=== PATIENT | female | born 1980 | race Caucasian/White ===

== ENCOUNTER 2019-11-23 06:37 | Outpatient (CLI) | payer OTHER, BC, SELFPAY ==
--- NOTE | ~2019-11-23 | MR_ITS ---
EXAMINATION: MR cervical spine wo con EXAM DATE: 11/23/2019 07:40 INDICATION: Right arm numbness/pain. Neck pain. Paresthesia. TECHNIQUE: Multi-sequential, multiplanar MR images of the cervical spine were obtained without contra st. Axial T2, axial T2 MERGE sequence. Sagittal T1, T2, T2 fat saturation images also obtained. Th ere is no prior study for comparison. FINDINGS: There is moderate disc disease at C5-6 and 6-7. The vertebral body and disc heights are ot herwise well maintained. The vertebral bodies are aligned in the AP dimension. The spinal cord signal intensity and intrinsic morphology is normal. Cervicomedullary junction is normal in appearance. The re are no suspicious marrow signal abnormalities. Paraspinal soft tissue is unremarkable. Level by level evaluation: C2-C3: Disc does not extend beyond the endplate margin. Uncovertebral joint arthropathy: Mild left. Facet joint arthropathy: Mild bilateral. Neural foraminal stenosis: No stenosis. Central canal stenosis: No stenosis. C3-C4: Disc does not extend beyond the endplate margin. Uncovertebral joint arthropathy: Mild bilateral. Facet joint arthropathy: Mild bilateral. Neural foraminal stenosis: Mild right. Central canal stenosis: No stenosis. C4-C5: Disc does not extend beyond the endplate margin. Uncovertebral joint arthropathy: Mild bilateral. Facet joint arthropathy: Mild bilateral. Neural foraminal stenosis: Mild to moderate left. Central canal stenosis: No stenosis. C5-C6: There is a mild diffuse disc bulge extending into the right neural foramina. Uncovertebral joint arthropathy: Mild to moderate bilateral. Facet joint arthropathy: Mild bilateral. Neural foraminal stenosis: Moderate right, mild to moderate left. Central canal stenosis: Mild. C6-C7: There is a mild diffuse disc bulge. Uncovertebral joint arthropathy: Mild to moderate bilateral left greater than right. Facet joint arthropathy: Mild bilateral. Neural foraminal stenosis: Moderate left, mild to moderate right. Central canal stenosis: Mild. C7-T1: Disc does not extend beyond the endplate margin. Uncovertebral joint arthropathy: Mild bilateral. Facet joint arthropathy: Minimal. Neural foraminal stenosis: No stenosis. Central canal stenosis: No stenosis. IMPRESSION: Spondylosis mostly at C5-6 and 6-7 with the right C5-6 neural foramina most narrowed on e xam. Reviewed, dictated and finalized at location A. NESS PROCESS ASSOCIATE IMPRESSION: Spondylosis mostly at C5-6 and 6-7 with the right C5-6 neural amaury ap most narrowed on exam.
== END 2019-11-23 06:38 | disposition home or self-care (01) ==
PROVIDERS: PCP Nurse Practitioner Family; Visit Provider Nurse Practitioner Family
DX: R20.2 Paresthesia of skin (principal); M47.892 Other spondylosis, cervical region
CPT/HCPCS: 72141

== ENCOUNTER 2021-12-06 10:37 | Outpatient (CLI) | payer BC, SELFPAY ==
--- NOTE | ~2021-12-06 | MM_ITS ---
EXAMINATION: MM screening [facility] BI w arelis HISTORY: Screening mammogram TECHNIQUE: Craniocaudal and mediolateral oblique 3-D tomosynthesis images were obtained and synthetic 2-D images were generated. CAD analysis was submitted and interpreted. COMPARISON: 05/30/2019, 05/27/2018 bilateral screening mammogram examinations BREAST PARENCHYMAL COMPOSITION: The breasts are heterogeneously dense, which may obscure small masses . FINDINGS: There is interval asymmetric increased density in the posterior upper inner right breast si nce 05/30/2019. Diagnostic right mammogram is recommended, with ultrasound if required. Otherwise there is no evidence of suspicious mass, calcification, or architectural distortion to sugg est malignancy in either breast. There has been no suspicious interval change. IMPRESSION: 1. Interval asymmetric increased density in posterior upper inner right breast 2. Diagnostic right mammogram and right breast ultrasound examination are recommended BI-RADS Category 1: Negative Reviewed, dictated and finalized at location A. GED CARE COORDINATOR IMPRESSION: 1. Interval asymmetric increased density in posterior upper inner right breast 2. Diagnostic right mammogram and right breast ultrasound examination are recom mended BI-RADS Category 1: Negative
== END 2021-12-06 10:38 | disposition home or self-care (01) ==
LOC: ANHIMG 10:41
PROVIDERS: PCP Nurse Practitioner Family; Visit Provider Obstetrics & Gynecology
DX: Z12.31 Encounter for screening mammogram for malignant neoplasm of breast (principal); R92.8 Other abnormal and inconclusive findings on diagnostic imaging of breast
CPT/HCPCS: 77063; 77067

== ENCOUNTER 2021-12-19 13:28 | Outpatient (CLI) | payer BC, SELFPAY ==
--- NOTE | ~2021-12-19 | MMUS_ITS ---
EXAMINATION: MM diagnostic mammo unilat RT, US breast RT limited HISTORY: Right breast asymmetry on screening mammogram TECHNIQUE: Additional 3-D tomosynthesis images of the right breast were performed and synthetic 2-D i mages were generated. CAD analysis was submitted and interpreted. High resolution limited right breas t ultrasound was performed. COMPARISON: 12/06/2021, 05/30/2019, 05/27/2018 FINDINGS: MAMMOGRAPHIC FINDINGS: There is a persistent asymmetry in the posterior third of the slightly upper breast on the craniocaud al view. No suspicious calcification or architectural distortion are identified. ULTRASOUND: There is a 4 mm cyst at the 11:00 location 2 cm from the nipple. No sonographic correlate is identifi ed for the right breast asymmetry. IMPRESSION: 1. Probably benign right breast asymmetry. 2. Recommend 6 month follow-up right diagnostic mammogram and possible ultrasound. BI-RADS category 3, probably benign findings. Reviewed, dictated and finalized at location A. RITY AND COMPLIANCE PROJECT MANAGER IMPRESSION: 1. Probably benign right breast asymmetry. 2. Recommend 6 month follow-up right diagnostic mammogram and possible ultrasou nd. BI-RADS category 3, probably benign findings.
== END 2021-12-19 13:29 | disposition home or self-care (01) ==
LOC: ANHIMG 13:30
PROVIDERS: PCP Nurse Practitioner Family; Visit Provider Obstetrics & Gynecology
DX: R92.8 Other abnormal and inconclusive findings on diagnostic imaging of breast (principal)
CPT/HCPCS: 76642; 77061; 77065; G0279

== ENCOUNTER 2022-07-17 12:46 | Outpatient (CLI) | payer BC, SELFPAY ==
--- NOTE | ~2022-07-17 | MMUS_ITS ---
EXAMINATION: MM diagnostic [place] RT w arelis, US breast RT complete HISTORY: Probably benign right breast mammographic asymmetry reported on 12/2021 diagnostic right [place] mogram and limited right breast ultrasound TECHNIQUE: Full field and spot ML, MLO and CC 3-D tomosynthesis images of the right breast were perfo rmed and synthetic 2-D images were generated. CAD analysis was submitted and interpreted. High resolu tion complete right breast ultrasound including all 4 quadrants and subareolar area was performed. COMPARISON: bilateral screening mammogram 3. diagnostic right mammogram and limited right breast ultrasound BREAST PARENCHYMAL COMPOSITION: There are scattered areas of fibroglandular density. FINDINGS: MAMMOGRAPHIC FINDINGS: Mammographic asymmetry is again noted when comparing right breast to left breast screening mammogram images. No suspicious mass or architectural distortion is noted. ULTRASOUND: 9:00 4 cm from nipple: 2 x 4 mm cyst 11:00 2 cm from nipple: 2.3 x 4.8 mm parallel circumscribed hypoechoic lesion without internal vascul arity or posterior shadowing, likely benign IMPRESSION: 1. No mammographic evidence of malignancy 2. Routine annual mammographic screening is recommended. BI-RADS Category 2: Benign finding(s). Reviewed, dictated and finalized at location A. IMPRESSION: 1. No mammographic evidence of malignancy 2. Routine annual mammographic screening is recommended. BI-RADS Category 2: Benign finding(s).
== END 2022-07-17 12:47 | disposition home or self-care (01) ==
LOC: ANHIMG 12:49
PROVIDERS: PCP Nurse Practitioner Family; Visit Provider Obstetrics & Gynecology
DX: R92.8 Other abnormal and inconclusive findings on diagnostic imaging of breast (principal)
CPT/HCPCS: 76641; 77061; 77065; G0279

== ENCOUNTER 2023-05-05 15:31 | Outpatient (CLI) | payer BC, SELFPAY ==
--- NOTE | ~2023-05-05 | MR_ITS ---
EXAMINATION: MR shoulder RT wo con DATE: 05/05/2023 16:15 INDICATION: PARTIAL THICKNESS ROTATOR CUFF TEAR . TECHNIQUE: Magnetic resonance imaging (MRI) of the right shoulder was performed without intravenous c ontrast. Sequences included axial PD-weighted FS FSE, coronal oblique PD-weighted FS FSE and T2-weigh matilde FS FSE, and sagittal oblique T2-weighted FS FSE and T1-weighted FSE. COMPARISON: None. FINDINGS: Coracoacromial arch: Mild lateral downsloping of the type II acromion. Mild inferior osteophytosis of the AC joint. Mild a cromial tip enthesopathy. No significant subacromial or subcoracoid narrowing. Rotator cuff: Soft tissue anchors from prior rotator cuff repair. 3 mm full-thickness defect in the distal aspect o f the infraspinous tendon, at its insertion. Focal articular sided defect, likely small perforation, in the supraspinatous tendon at the critical zone. Generalized diffuse abnormal signal in the mid and distal superior cuff tendons. Mild volume loss of the infraspinous muscle. 4 mm low signal area in t he superior cuff with surrounding edema may represent a component of calcific tendinitis. Biceps tendon and glenoid labrum: The long and short heads of the biceps are intact Fluid: Small volume subacromial fluid. Small volume glenohumeral joint fluid. Bones/cartilage: Moderate AC joint hypertrophy. Mild degenerative change at the glenohumeral joint and glenoid labrum. IMPRESSION: 3 mm full-thickness infraspinatus tear at its insertion. Focal articular sided perforation of the sup raspinous tendon at the critical zone. Changes of prior rotator cuff repair. Abnormal signal in the distal superior cuff likely relates to t endinopathy and/or postsurgical change. Mild infraspinatus atrophy. Mild subacromial bursitis. Mild outlet compromise. Moderate AC joint and mild glenohumeral osteoarthritis. Reviewed, dictated and finalized at location K. IMPRESSION: 3 mm full-thickness infraspinatus tear at its insertion. Focal articular sided perforation of the supraspinous tendon at the critical zone. Changes of prior rotator cuff repair. Abnormal signal in the distal superior cu ff likely relates to tendinopathy and/or postsurgical change. Mild infraspinatu s atrophy. Mild subacromial bursitis. Mild outlet compromise. Moderate AC joint and mild glenohumeral osteoarthritis.
== END 2023-05-05 15:32 | disposition home or self-care (01) ==
PROVIDERS: PCP Nurse Practitioner Family; Visit Provider Orthopaedic Surgery Hand Surgery
DX: M75.101 Unspecified rotator cuff tear or rupture of right shoulder, not specified as traumatic (principal); M19.011 Primary osteoarthritis, right shoulder; M75.51 Bursitis of right shoulder
CPT/HCPCS: 73221

== ENCOUNTER 2024-03-08 13:14 | Outpatient (CLI) | payer BC, SELFPAY ==
--- NOTE | ~2024-03-08 | MM_ITS ---
EXAMINATION: MM screening [facility] BI w arelis HISTORY: Screening TECHNIQUE: Craniocaudal and mediolateral oblique 3-D tomosynthesis images were obtained and synthetic 2-D images were generated. CAD analysis was submitted and interpreted. COMPARISON: Comparison to multiple prior studies sequentially, with oldest reviewed study dated 05/30. BREAST PARENCHYMAL COMPOSITION: Dense: The breasts are heterogeneously dense, which may obscure small masses FINDINGS: There is no evidence of suspicious mass, calcification, or architectural distortion to sugg est malignancy in either breast. There has been no suspicious interval change. IMPRESSION: 1. No mammographic evidence of malignancy. 2. Recommend routine screening mammography in one year. BI-RADS Category 1: Negative Reviewed, dictated and finalized at location A.
== END 2024-03-08 13:15 | disposition home or self-care (01) ==
LOC: ANHIMG 13:15
PROVIDERS: PCP Family Medicine; Visit Provider Obstetrics & Gynecology
DX: Z12.31 Encounter for screening mammogram for malignant neoplasm of breast (principal)
CPT/HCPCS: 77063; 77067

== ENCOUNTER 2024-08-09 16:48 | Inpatient (IN) | payer BC, SELFPAY ==
[2024-08-09] VITALS (14 sets, daily range): BP systolic 117–132; BP diastolic 60–88; PULSE 51–81; RESP 13–23; TEMP 36–36.6; O2SAT 97–100; BMI 24.0
--- NOTE | ~2024-08-09 | MR_ITS ---
EXAMINATION: MR MRCP wo/w con/w 3D wo ind DATE: 08/10/2024 13:11 INDICATION: Right upper quadrant abdominal pain. TECHNIQUE: Magnetic resonance imaging (MRI) of the abdomen was performed without and with 14 mL Multi [place] intravenous contrast. Sequences included coronal T2-weighted FS FSE, coronal T2-weighted FSE, a xial T1-weighted LAVA, coronal FS FIESTA, axial dual-echo T1-weighted SPGR, coronal lava-FLEX, sagitt al T2-weighted FSE, axial T2-weighted FSE, and axial DWI. Thick-slab T2-weighted FSE images were obta ined for magnetic resonance cholangiopancreatography (MRCP). Maximum intensity projection 3-D reconst ructions of the volumetric data were created by the technologist. Postcontrast sequences included cor onal LAVA-flex and time course of axial T1-weighted LAVA. COMPARISON: CT abdomen and pelvis 08/09/2024, ultrasound 08/09/2024 FINDINGS: ABDOMEN MRI: The liver is normal. The gallbladder is distended and contains gallstones. The spleen, p ancreas, adrenal glands, and left kidney are normal. There is a 9 mm cyst in right kidney. There are no dilated loops of bowel. ABDOMEN MRCP: The common duct is mildly dilated to 8 mm. No choledocholithiasis. IMPRESSION: 1. Mildly dilated common duct. No choledocholithiasis. 2. Cholelithiasis. Gallbladder distention may be secondary to fasting. Reviewed, dictated and finalized at location A.
--- NOTE | ~2024-08-09 | XR_ITS ---
INTRAOPERATIVE FLUOROSCOPY: CLINICAL HISTORY: 44 years old Female; GRACIA W/ IOC'S PROCEDURE COMMENTS: Limited intraoperative fluoroscopy of the right upper quadrant was performed. CUMULATIVE DOSE: 1.5 mGy FLUOROSCOPY TIME: 11.9 seconds FINDINGS/IMPRESSION: Please refer to operative note for further details. Reviewed, dictated and finalized at location A.
--- NOTE | ~2024-08-09 | XR_ITS ---
EXAMINATION: XR chest 2V DATE: 08/09/2024 17:07 INDICATION: Chest and back pain. Nausea. TECHNIQUE: PA and lateral views of the chest were obtained. COMPARISON: None FINDINGS: The lungs are clear with no focal airspace opacities, pulmonary edema, pleural effusion or pneumothor ax. The cardiomediastinal silhouette is normal. Mild to moderate thoracic spondylosis with chronic ap pearing mild anterior wedging of T7 and minimal anterior wedging at T11-T12. Prosthetic discs particu lar couple levels in the lower cervical spine. IMPRESSION: 1. No acute cardiopulmonary disease. Reviewed, dictated and finalized at location A.
--- NOTE | ~2024-08-09 | US_ITS ---
EXAMINATION: US abdomen limited DATE: 08/09/2024 19:41 INDICATION: Epigastric pain TECHNIQUE: Multiple grayscale and Doppler ultrasound images of the abdomen were obtained. COMPARISON: None FINDINGS: Portions of the pancreatic head and secured. The remainder the pancreas is normal in appearance. Live r has normal echogenicity and contour, with a smooth surface. No liver lesion identified. Minimal andriy tral intrahepatic biliary duct dilation suspected. Portal venous flow was seen in the hepatopetal, no rmal direction and has normal Doppler waveform. Multiple echogenic and shadowing gallstones within th e normal appearing gallbladder. There is a small amount of pericholecystic fluid at the gallbladder f shlomo. The common bile duct is dilated measuring 9 mm in maximal diameter. Sonographic Angelo sign was reported as positive by the dental technician apprentice.The visualized proximal to mid aorta and inferior vena cava are normal. IMPRESSION: 1. Cholelithiasis with positive sonographic Angelo sign and small amount of pericholecystic fluid con sistent with likely early acute cholecystitis. 2. Mild intra and extrahepatic biliary ductal dilation with common bile duct measuring up to 9 mm whi ch suggests a possible distal obstructing stone. Correlate with liver function tests and consider MRC P for further evaluation. Reviewed, dictated and finalized at location A. IMPRESSION: 1. Cholelithiasis with positive sonographic Angelo sign and small amount of per icholecystic fluid consistent with likely early acute cholecystitis. 2. Mild intra and extrahepatic biliary ductal dilation with common bile duct me asuring up to 9 mm which suggests a possible distal obstructing stone. Correlat e with liver function tests and consider MRCP for further evaluation.
--- NOTE | ~2024-08-09 | CT_ITS ---
EXAMINATION: CT abdomen pelvis w con DATE: 08/09/2024 19:25 INDICATION: Epigastric pain TECHNIQUE: Computed tomography (CT) of the abdomen and pelvis was performed with 100 mL Omnipaque-350 intravenous contrast. Automated exposure control and iterative reconstruction technique were employe d. The dose-length product was 336.08 mGy-cm. COMPARISON: None FINDINGS: Lung bases are clear. Heart size is normal. No pericardial or pleural effusion. There is mild central intrahepatic ductal or ductal dilation and mild dilation of the common bile duct to 7 mm. No evident obstructing stone or mass. The gallbladder appears normal with no evident wall thickening or pericho lecystic inflammatory stranding. There is however a small amount of fluid fluid situated between the bladder and the liver. Spleen, pancreas, bilateral adrenal glands and left kidney are normal. 1 cm ri ght renal cyst. No abnormal bowel wall thickening or obstruction. The appendix is unable to be defini tively distinguished from the adjacent bowel. There is however no surrounding inflammatory stranding to suggest acute appendicitis. Bladder is normal. The uterus is not identified and has likely been montaño rgically resected. 1.8 cm peripherally enhancing right ovarian corpus luteum cyst. Left adnexa is unr emarkable. Minimal amount of likely physiologic free fluid in the deep pelvis. No pathologically enla rged abdominal or pelvic lymphadenopathy. Severe disc height loss at L5-S1, moderate disc height loss at T11-T12 and minimal to mild disc height loss at a few additional levels in the lumbar and lower t horacic spine. IMPRESSION: 1. Mild intra and extra hepatic ductal or ductal dilation without evident obstructing stone or mass. Correlate with liver function tests and could consider HIDA scan for further evaluation as clinically indicated. 2. Nonspecific small amount of fluid between the liver and the normal-appearing gallbladder. Could no t absent exclude early acute cholecystitis and would correlate for Angelo sign. Could additionally co nsider either right upper quadrant ultrasound or HIDA scan as clinically indicated. Reviewed, dictated and finalized at location A. IMPRESSION: 1. Mild intra and extra hepatic ductal or ductal dilation without evident obstr ucting stone or mass. Correlate with liver function tests and could consider HI DA scan for further evaluation as clinically indicated. 2. Nonspecific small amount of fluid between the liver and the normal-appearing gallbladder. Could not absent exclude early acute cholecystitis and would [place] elate for Angelo sign. Could additionally consider either right upper quadrant ultrasound or HIDA scan as clinically indicated.
--- NOTE | 2024-08-09 16:49 | ECG_ITS ---
Test Date: 2024-08-09 16:53:24 Measurements Intervals [place] Rate: 49 P: 73 OK: 134 QRS: 54 QRSD: 90 T: 53 QT: 410 QTc: 373 Interpretive Statements SINUS BRADYCARDIA WITH SINUS ARRHYTHMIA No previous ECG available for comparison Electronically Signed On 08-10-2024 09:38:30 CDT by John Galloway M.D.
[2024-08-09 17:10] LABS: Basophils Percent Auto 0.3 % (0.2-1.2); Eosinophils Percent Auto 0.1 % (0-4.4); Hemoglobin 13.7 g/dL (12.0-15.0); Immature Granulocyte Absolute 0.04 K/mm3 (0.00-0.031); Immature Granulocyte Percent A 0.4 % (0-0.5); Lymphocytes Absolute Auto 1.21 K/mm3 (0.9-3.2); Lymphocytes Percent Auto 12.6 % (18.3-44.2); Mean Corpuscular HGB Conc 34.3 g/dl (32-36); Mean Corpuscular Hemoglobin 33.7 pg (26-34); Mean Corpuscular Volume 98.3 fl (80-100); Mean Platelet Volume 8.9 fl (7.4-10.4); Monocytes Absolute Auto 0.6 K/mm3 (0.1-0.6); Monocytes Percent Auto 6.7 % (2.6-8.5); Neutrophils Absolute Auto 7.6 K/mm3 (1.3-6.7); Neutrophils Percent Auto 79.9 % (45.5-73.1); Platelet Count Result 369 k/mm3 (150-375); Red Blood Count 4.07 M/mm3 (4.2-5.4); Red Cell Distribution Width 12.1 % (11.5-14.5); White Blood Count 9.6 K/mm3 (4.5-10.0)
[2024-08-09 17:21] LABS: Prothrombin Time 13.9 Seconds (11.1-14.7)
[2024-08-09 17:39] LABS: Troponin I < 0.012 ng/mL (0.000-0.034)
[2024-08-09 17:40] LABS: Alanine Aminotransferase 437 U/L (6-35); Albumin Level 4.2 g/dL (3.5-5.1); Alkaline Phosphatase 86 U/L (38-126); Anion Gap 5 mmol/L (4-12); Bilirubin,Total 2.5 mg/dL (0.2-1.3); Blood Urea Nitrogen 13 mg/dL (7-17); Carbon Dioxide 27 mmol/L (22-30); Chloride 101 mmol/L (98-107); Estimated CRCL calculation 84 ml/min; Estimated Glomerular Filt Rate > 60; Glucose 104 mg/dL (65-110); Lipase 542 U/L (23-300); Sodium 133 mmol/L (137-145)
[2024-08-09 17:41] LABS: Aspartate Amino Transferase 812 U/L (14-36)
[2024-08-09] MEDS: ASPIRIN 81 MG CHEWABLE TABLET 324 MG PO (18:14)
--- NOTE | 2024-08-09 18:19 | ED_ITS ---
HPI - Abdominal Pain General Chief Complaint: Chest Pain Stated Complaint: chest discomfort since this AM Time Seen by Provider: 08/09/24 18:12 History of Present Illness HPI narrative: Pt presents with epigastric and RUQ pain which started last night and improved then recurred this morning and started to go up into her chest and through to her back. Pt has history of GERD but this feels different. Pt denies vomiting or fever. Related Data Allergies Allergy/AdvReac Type Severity Reaction Status Date / Time suture Allergy Unknown VICRYL Verified 04/16/17 07:11 SUTURE REJECTED BY BODY Review of Systems Review of Systems: All systems reviewed & are unremarkable except as noted in HPI and below Exam Const: General: healthy appearing and no acute distress Nutritional Appearance: well nourished Orientation/consciousness: patient oriented x3 Limitations: no limitations Chest: Chest palpation & inspection: normal inspection of the chest Resp: Effort & Inspection: normal respiratory effort Auscultation: clear to auscultation bilaterally Cardio: Rate: regular rate Rhythm: regular rhythm GI: GI Palp: Yes Soft to palpation and Yes Tenderness to palpation present (GI) (mild epigastric and RUQ tenderness) Auscultation: normal bowel sounds Skin: General skin exam: normal color Rashes: no rashes Wounds: no wounds Neuro: General: patient oriented x3, moves all extremities and no meningeal signs Cranial nerves: Yes Nystagmus not present Speech: normal speech Extrem: General: normal to inspection and no clubbing, cyanosis or edema Psych: Mental Status: mental status grossly normal Affect: normal affect Attitude: cooperative Course Vital Signs Vital signs: Vital Signs Temperature 97.8 F 08/09/24 16:55 Pulse Rate 55 L 08/09/24 16:55 Respiratory Rate 18 08/09/24 16:55 Blood Pressure 125/79 08/09/24 16:55 Pulse Oximetry 100 08/09/24 16:55 Oxygen Delivery Room Air 08/09/24 16:55 Temperature 97.8 F 08/09/24 16:55 Pulse Rate 60 08/09/24 19:00 Respiratory Rate 18 08/09/24 19:00 Blood Pressure 117/80 08/09/24 19:00 Pulse Oximetry 100 08/09/24 19:00 Oxygen Delivery Room Air 08/09/24 18:16 MDM - Abdominal Pain MDM Narrative Medical decision making narrative: Pt presents with epigastric pain and RUQ pain radiating into chest and through to back. Pt says her pain is ok now. will get labs and CT and sono of ruq. Pt has dilated bile duct and cholecystitis, elevated lft's and lipase. discussed with Dr Grayd and says will see in am, order MRCP. discussed with Dr Medeiros agrees to consult. Dicussed with Dr Graham agrees to admit. Differential Diagnosis Differential diagnosis: Likely abdominal pain, acute appendicitis, constipation, endometriosis, pancreatitis and other (cholecystitis, cad, mi) Lab Data 08/09/24 17:03 08/09/24 17:03 Labs: Lab Results 08/09/24 08/09/24 Range/Units 17:03 20:26 WBC 9.6 (4.5-10.0) K/mm3 RBC 4.07 L (4.2-5.4) M/mm3 Hgb 13.7 (12.0-15.0) g/dL Hct 40.0 (37.0-47.0) % MCV 98.3 (80-100) fl MCH 33.7 (26-34) pg MCHC 34.3 (32-36) g/dl RDW 12.1 (11.5-14.5) % Plt Count 369 (150-375) k/mm3 MPV 8.9 (7.4-10.4) fl Immature Gran % (Auto) 0.4 (0-0.5) % Neut % (Auto) 79.9 H (45.5-73.1) % Lymph % (Auto) 12.6 L (18.3-44.2) % [place] % (Auto) 6.7 (2.6-8.5) % Eos % (Auto) 0.1 (0-4.4) % Baso % (Auto) 0.3 (0.2-1.2) % Lymph # (Auto) 1.21 (0.9-3.2) K/mm3 [place] # (Auto) 0.6 (0.1-0.6) K/mm3 Eos # (Auto) 0.0 (0-0.3) K/mm3 Baso # (Auto) 0.0 (0.0-0.1) K/mm3 Abs Immat Gran (auto) 0.04 H (0.00-0.031) K/mm3 Absolute Neuts (auto) 7.6 H (1.3-6.7) K/mm3 Absolute Nucleated RBC 0.000 (0.0-0.012) K/mm3 Nucleated RBC % 0.0 (0.0-0.2) % PT 13.9 (11.1-14.7) Seconds INR 1.0 APTT 26.0 (22.3-36.8) Seconds Sodium 133 L (137-145) mmol/L Potassium 4.0 (3.4-5.0) mmol/L Chloride 101 (98-107) mmol/L Carbon Dioxide 27 (22-30) mmol/L Anion Gap 5 (4-12) mmol/L BUN 13 (7-17) mg/dL Creatinine 0.70 (0.7-1.0) mg/dL Estim Creat Clear Calc 84 ml/min Estimated GFR > 60 (59 - ) Glucose 104 (65-110) mg/dL Calcium 9.0 (8.4-10.2) mg/dL Total Bilirubin 2.5 H (0.2-1.3) mg/dL AST 812 H (14-36) U/L ALT 437 H (6-35) U/L Alkaline Phosphatase 86 (38-126) U/L Troponin I < 0.012 < 0.012 (0.000-0.034) ng/mL Total Protein 7.0 (6.3-8.2) g/dL Albumin 4.2 (3.5-5.1) g/dL Lipase 542 H (23-300) U/L Imaging Data Radiologist's impression: ITS Impressions Chest X-Ray 08/09/24 17:22 IMPRESSION: 1. No acute cardiopulmonary disease. Abdomen/Pelvis CT 08/09/24 19:32 IMPRESSION: 1. Mild intra and extra hepatic ductal or ductal dilation without evident obstructing stone or mass. Correlate with liver function tests and could consider HIDA scan for further evaluation as clinically indicated. 2. Nonspecific small amount of fluid between the liver and the normal-appearing gallbladder. Could not absent exclude early acute cholecystitis and would correlate for Angelo sign. Could additionally consider either right upper quadrant ultrasound or HIDA scan as clinically indicated. Abdomen Ultrasound 08/09/24 19:46 IMPRESSION: 1. Cholelithiasis with positive sonographic Angelo sign and small amount of pericholecystic fluid consistent with likely early acute cholecystitis. 2. Mild intra and extrahepatic biliary ductal dilation with common bile duct m easuring up to 9 mm which suggests a possible distal obstructing stone. Correlate with liver function tests and consider MRCP for further evaluation. Discharge Plan Discharge Clinical Impression: Acute cholecystitis, Choledocholithiasis, Cholelithiasis Patient Disposition: Still a Patient Condition: Stable
--- NOTE | 2024-08-09 20:35 | P.HP_ITS ---
H&P: HPI History of Present Illness Date/Time: 08/09/24 20:35 Chief Complaint: Right upper quadrant pain Narrative: This is a 44-year-old female with past medical history significant for generalized anxiety disorder, major depression. patient presents to the emergency room due to sudden onset of right upper quadrant pain with radiation to the chest and back, rates the pain as 10/10 in intensity, pain is colicky. Patient denies any vomiting but had nausea, no fevers no rigors no chills no cough no sputum production. Patient denies any dyspepsia . Has been her usual state of health. Preliminary workup was significant for CT of abdomen and pelvis reported with extrahepatic duct dilatation. Ultrasound of the right upper quadrant showed cholelithiasis with a positive Angelo sign. patient has been admitted for further evaluation management and treatment. EXAMINATION: XR chest 2V DATE: 08/09/2024 17:07 INDICATION: Chest and back pain. Nausea. TECHNIQUE: PA and lateral views of the chest were obtained. COMPARISON: None FINDINGS: The lungs are clear with no focal airspace opacities, pulmonary edema, pleural effusion or pneumothorax. The cardiomediastinal silhouette is normal. Mild to moderate thoracic spondylosis with chronic appearing mild anterior wedging of T7 and minimal anterior wedging at T11-T12. Prosthetic discs particular couple levels in the lower cervical spine. IMPRESSION: 1. No acute cardiopulmonary disease. EXAMINATION: CT abdomen pelvis w con DATE: 08/09/2024 19:25 INDICATION: Epigastric pain TECHNIQUE: Computed tomography (CT) of the abdomen and pelvis was performed with 100 mL Omnipaque-350 intravenous contrast. Automated exposure control and iterative reconstruction technique were employed. The dose-length product was 336.08 mGy-cm. COMPARISON: None FINDINGS: Lung bases are clear. Heart size is normal. No pericardial or pleural effusion. There is mild central intrahepatic ductal or ductal dilation and mild dilation of the common bile duct to 7 mm. No evident obstructing stone or mass. The gallbladder appears normal with no evident wall thickening or pericholecystic inflammatory stranding. There is however a small amount of fluid fluid situated between the bladder and the liver. Spleen, pancreas, bilateral adrenal glands and left kidney are normal. 1 cm right renal cyst. No abnormal bowel wall thickening or obstruction. The appendix is unable to be definitively distinguished from the adjacent bowel. There is however no surrounding inflammatory stranding to suggest acute appendicitis. Bladder is normal. The uterus is not identified and has likely been surgically resected. 1.8 cm peripherally enhancing right ovarian corpus luteum cyst. Left adnexa is unremarkable. Minimal amount of likely physiologic free fluid in the deep pelvis. No pathologically enlarged abdominal or pelvic lymphadenopathy. Severe disc height loss at L5-S1, moderate disc height loss at T11-T12 and minimal to mild disc height loss at a few additional levels in the lumbar and lower thoracic spine. IMPRESSION: 1. Mild intra and extra hepatic ductal or ductal dilation without evident obstructing stone or mass. Correlate with liver function tests and could consider HIDA scan for further evaluation as clinically indicated. 2. Nonspecific small amount of fluid between the liver and the normal-appearing gallbladder. Could not absent exclude early acute cholecystitis and would correlate for Angelo sign. Could additionally consider either right upper quadrant ultrasound or HIDA scan as clinically indicated. EXAMINATION: US abdomen limited DATE: 08/09/2024 19:41 INDICATION: Epigastric pain TECHNIQUE: Multiple grayscale and Doppler ultrasound images of the abdomen were obtained. COMPARISON: None FINDINGS: Portions of the pancreatic head and secured. The remainder the pancreas is normal in appearance. Liver has normal echogenicity and contour, with a smooth surface. No liver lesion identified. Minimal central intrahepatic biliary duct dilation suspected. Portal venous flow was seen in the hepatopetal, normal direction and has normal Doppler waveform. Multiple echogenic and shadowing gallstones within the normal appearing gallbladder. There is a small amount of pericholecystic fluid at the gallbladder fossa. The common bile duct is dilated measuring 9 mm in maximal diameter. Sonographic Angelo sign was reported as positive by the supervisor histology.The visualized proximal to mid aorta and inferior vena cava are normal. IMPRESSION: 1. Cholelithiasis with positive sonographic Angelo sign and small amount of pericholecystic fluid consistent with likely early acute cholecystitis. 2. Mild intra and extrahepatic biliary ductal dilation with common bile duct measuring up to 9 mm which suggests a possible distal obstructing stone. Correlate with liver function tests and consider MRCP for further evaluation. Review of Systems Review of Systems: right upper quadrant pain, nausea. PMFSH Social History Social History Smoking packs per day: 1 Smoking cigarettes per day: 20.0 Smoking status: Former smoker Tobacco type: cigarettes Alcohol intake: current Drinks per week: 3 Substance use: current Substance use type: marijuana Other substance usage details: Helps her sleep Last use: 08/08/23 Do You Feel Safe in your Home?: Yes Lack of Transportation: No Lack of Food: Never True Current Housing: I Have Housing Concerned About Future Housing: No Difficulty Paying Gas/Electric Bills: No Difficulty Paying for Meds: No Currently Unemployed: No Education: Associate Degree Difficulty w/ Childcare or Family Care: No Spiritual care concerns: No Meds Home Medications and Allergies Home Medications Medication Instructions Recorded Confirmed Type atogepant 60 mg tablet (Qulipta) 60 mg PO DAILY 08/09/24 08/09/24 History bupropion HCl 300 mg 24 hr tablet, 300 mg PO DAILY 08/09/24 08/09/24 History extended release cariprazine 1.5 mg capsule 1.5 mg PO DAILY 08/09/24 08/09/24 History (Vraylar) lorazepam 0.5 mg tablet 0.5 mg PO DAILY 08/09/24 08/09/24 History mirabegron 25 mg tablet,extended 25 mg PO DAILY 08/09/24 08/09/24 History release 24 hr Allergies Allergy/AdvReac Type Severity Reaction Status Date / Time suture Allergy Unknown VICRYL Verified 04/16/17 07:11 SUTURE REJECTED BY BODY Vital Signs Vital Signs - 24 hr 08/09/24 16:55 08/09/24 18:15 08/09/24 18:16 Temperature 97.8 F Pulse Rate 55 L 69 Respiratory Rate 18 18 Blood Pressure 125/79 123/85 Pulse Oximetry 100 100 100 Oxygen Delivery Room Air Room Air 08/09/24 18:52 08/09/24 17:42 08/09/24 17:43 Temperature Pulse Rate 66 57 L 56 L Respiratory Rate 14 23 H 13 Blood Pressure 121/88 122/82 Pulse Oximetry 100 99 100 Oxygen Delivery 08/09/24 17:45 08/09/24 18:00 08/09/24 18:15 Temperature Pulse Rate 51 L 51 L 68 Respiratory Rate 22 H 15 18 Blood Pressure 123/85 Pulse Oximetry 100 100 100 Oxygen Delivery 08/09/24 18:16 08/09/24 18:30 08/09/24 18:31 Temperature Pulse Rate 67 63 62 Respiratory Rate 17 19 15 Blood Pressure 121/88 Pulse Oximetry 100 100 100 Oxygen Delivery 08/09/24 18:51 08/09/24 19:00 Temperature Pulse Rate 62 60 Respiratory Rate 20 18 Blood Pressure 117/80 Pulse Oximetry 100 100 Oxygen Delivery Exam Narrative: patient is sitting in a stretcher Const: General: comfortable, no acute distress, well developed, alert, awake and average body habitus Nutritional Appearance: average body habitus Orientation/consciousness: patient oriented x3 HENMT: Head: normal to inspection, normocephalic and atraumatic Ears: hearing grossly normal bilaterally Face/Nose/Sinus: normal facial exam Face and sinus: normal facial exam Eyes: General: appearance normal, both eyes and all related structures Pupils: Equal, round and reactive pupils present EOM: EOMs intact bilaterally Neck: Neck: full ROM, no lymphadenopathy and no JVD Thyroid: thyroid normal Lymphatic: no lymphadenopathy noted Resp: Effort & Inspection: normal respiratory effort and able to speak in complete sentences Auscultation: clear to auscultation bilaterally Cardio: Jugular venous distension: no JVD Rate: regular rate Rhythm: regular rhythm Heart sounds: S1 normal heart sound present and S2 normal heart sound present GI: GI Palp: Yes Soft to palpation, Yes Tenderness to palpation present (GI), No Guarding due to palpation present (GI), No Rigid due to palpation, Yes No hepatosplenomegaly present and No Rebound tenderness present Other: Angelo positive : General: Yes deferred Skin: Rashes: no rashes Wounds: no wounds Neuro: General: patient oriented x3 and CN's II-XI intact bilaterally Crani al nerves: Yes CN's II-XII intact bilaterally and Yes Equal, round and reactive pupils present Cognition (Neuro): normal cognition Speech: normal speech Gait exam (Neuro): Normal gait present Motor exam (neuro): 5/5 motor strength present throughout Extrem: General: normal to inspection, full ROM, no joint enlargement and no pedal edema H&P: Results Labs Labs: Short CBC 08/09/24 Range/Units 17:03 WBC 9.6 (4.5-10.0) K/mm3 Hgb 13.7 (12.0-15.0) g/dL Hct 40.0 (37.0-47.0) % Plt Count 369 (150-375) k/mm3 BMP 08/09/24 17:03 Sodium 133 L Potassium 4.0 Chloride 101 Carbon Dioxide 27 BUN 13 Creatinine 0.70 Glucose 104 Calcium 9.0 Cardiac Enzymes 08/09/24 Range/Units 17:03 Troponin I < 0.012 (0.000-0.034) ng/mL Liver Function 08/09/24 Range/Units 17:03 Total Bilirubin 2.5 H (0.2-1.3) mg/dL AST 812 H (14-36) U/L ALT 437 H (6-35) U/L Alkaline Phosphatase 86 (38-126) U/L Albumin 4.2 (3.5-5.1) g/dL Assessment and Plan Assessment and plan (1) Acute cholecystitis: Code(s): K81.0 - Acute cholecystitis Status: Acute Assessment and Plan: admit to regular medical floor started Zosyn (2) Choledocholithiasis: Code(s): K80.50 - Calculus of bile duct without cholangitis or cholecystitis without obstruction Status: Acute Assessment and Plan: GI and General surgery consult Hospitalist MIPS Advance Care Plan I have confirmed that the patient's Advanced Care Plan is present, code status is documented, or surrogate decision maker is listed in patient medical record.: Yes Medication Reconciliation I have utilized all available resources to obtain, update and review the patients current medications (includes all prescriptions, OTC, herbals, cannab is, and nutritional supplements).: Yes
[2024-08-09 20:59] LABS: Troponin I < 0.012 ng/mL (0.000-0.034)
[2024-08-09] MEDS: PIPERACILLIN/TAZ 4.5G/NS 100ML 4.5 GM/100 ML BAG IVPB (21:06)
[2024-08-09] MEDS: LACTATED RINGERS 1,000 ML 125 ML IV CONT (22:08)
--- NOTE | 2024-08-09 22:19 | ADMGEN ---
This patient, Alisa Mahoney, was admitted to [facility] Surg Room 312-01. Patient/family oriented to hospital policies and general routines including ID bracelet, bed and alarms, visiting hours, pain management, procedures, bathroom and other care routines, personal items, smoking policy, room service/diet, and visiting hours. Information on how to activate the Rapid Response Team has been discussed. Patient/Family are encouraged to report perceived risks to care and to ask questions if they do not understand what they are told or what they should do.
[2024-08-09 23:42] LABS: Troponin I < 0.012 ng/mL (0.000-0.034)
[2024-08-10 05:43] VITALS: BP 99/56; PULSE 72; RESP 14; TEMP 36.7; O2SAT 98
[2024-08-10] MEDS: PIPERACILLIN/TAZ 4.5G/NS 100ML 4.5 GM/100 ML BAG IVPB ×3 (05:48→17:04)
[2024-08-10] MEDS: LACTATED RINGERS 1,000 ML 125 ML IV CONT ×2 (06:24→21:14)
--- NOTE | 2024-08-10 07:38 | PHAR ---
HOME MED: QUILIPTA (ATOGEPANT) TABLETS 60 MG; NO INSTRUCTIONS ON BOTTLE ON HOW TO TAKE. ONLY 2 TABLETS IN THE BOTTLE. VRAYLAR (CARIPRAZINE) CAPSULES 1.5 MG; NO INSTRUCTIONS ON BOTTLE ON HOW TO TAKE. ONLY 3 CAPSULES IN THE BOTTLE. VERIFIED BY PHARMACY.
[2024-08-10 07:44] VITALS: O2SAT 99
[2024-08-10] MEDS: MIRABEGRON 25 MG ER TABLET PO (08:23)
[2024-08-10] MEDS: LORazepam (*CRX) 0.5 MG TABLET PO (08:23)
[2024-08-10] MEDS: buPROPion HCL XL (24 HR) 150 MG TABCR 300 MG PO (08:23)
[2024-08-10] MEDS: ATOGEPANT 60 MG 60 EACH PO (08:24)
[2024-08-10 08:39] LABS: Basophils Absolute Auto 0.1 K/mm3 (0.0-0.1); Basophils Percent Auto 1.1 % (0.2-1.2); Eosinophils Absolute Auto 0.1 K/mm3 (0-0.3); Eosinophils Percent Auto 1.1 % (0-4.4); Hematocrit 37.5 % (37.0-47.0); Hemoglobin 12.7 g/dL (12.0-15.0); Immature Granulocyte Absolute 0.01 K/mm3 (0.00-0.031); Immature Granulocyte Percent A 0.2 % (0-0.5); Lymphocytes Absolute Auto 0.99 K/mm3 (0.9-3.2); Mean Corpuscular HGB Conc 33.9 g/dl (32-36); Mean Corpuscular Hemoglobin 33.4 pg (26-34); Mean Corpuscular Volume 98.7 fl (80-100); Mean Platelet Volume 9.2 fl (7.4-10.4); Monocytes Absolute Auto 0.4 K/mm3 (0.1-0.6); Monocytes Percent Auto 7.8 % (2.6-8.5); Neutrophils Absolute Auto 3.3 K/mm3 (1.3-6.7); Neutrophils Percent Auto 68.8 % (45.5-73.1); Platelet Count Result 326 k/mm3 (150-375); Red Cell Distribution Width 12.2 % (11.5-14.5); White Blood Count 4.7 K/mm3 (4.5-10.0)
[2024-08-10 08:43] LABS: Albumin Level 3.5 g/dL (3.5-5.1); Alkaline Phosphatase 79 U/L (38-126); Anion Gap 5 mmol/L (4-12); Aspartate Amino Transferase 686 U/L (14-36); Bilirubin,Total 2.9 mg/dL (0.2-1.3); Blood Urea Nitrogen 9 mg/dL (7-17); Calcium 8.5 mg/dL (8.4-10.2); Carbon Dioxide 23 mmol/L (22-30); Chloride 107 mmol/L (98-107); Estimated CRCL calculation 86 ml/min; Estimated Glomerular Filt Rate > 60; Glucose 89 mg/dL (65-110); Potassium 3.7 mmol/L (3.4-5.0); Sodium 135 mmol/L (137-145)
[2024-08-10 08:58] LABS: Alanine Aminotransferase 827 U/L (6-35)
[2024-08-10] MEDS: PANTOPRAZOLE SODIUM IV 40 MG VIAL IV PUSH (09:52)
[2024-08-10] MEDS: ACETAMINOPHEN 325 MG TABLET 650 MG PO ×2 (10:31→16:18)
--- NOTE | 2024-08-10 10:38 | PM.IMPN ---
Progress Note: A&P Assessment and Plan (1) Acute cholecystitis: Code(s): K81.0 - Acute cholecystitis Status: Acute Assessment and Plan: admit to regular medical floor started [facility] GI and surgery consult. AST 686, ALT 824 Monitor labs. NPO for MRCP. LR @125 ml/hr. (2) Choledocholithiasis: Code(s): K80.50 - Calculus of bile duct without cholangitis or cholecystitis without obstruction Status: Acute Assessment and Plan: GI and General surgery consult Subjective Date/time seen: 08/10/24 10:38 Interval history: Patient denies chest pain, palpitations, headache, dizziness, nausea, or vomiting. Patient reports a headache that is a 4 , constant, and aching. Review of Systems Review of Systems: right upper quadrant pain, nausea. All systems reviewed & are unremarkable except as noted in HPI and below Exam Const: General: no acute distress Neck: Neck: supple Resp: Effort & Inspection: normal respiratory effort Auscultation: clear to auscultation bilaterally Cardio: Rate: regular rate Rhythm: regular rhythm GI: GI Palp: Yes Soft to palpation and Yes Tenderness to palpation present (GI) (RUQ) Auscultation: normal bowel sounds Other: Positive Angelo Skin: General skin exam: no rashes or lesions noted Extrem: General: normal to inspection Psych: Mental Status: mental status grossly normal Affect: normal affect Objective Data Vital Signs Vital Signs: Vital Signs - 24 hr 08/09/24 16:55 08/09/24 18:15 08/09/24 18:16 Temperature 97.8 F Pulse Rate 55 L 69 Respiratory Rate 18 18 Blood Pressure 125/79 123/85 Pulse Oximetry 100 100 100 Oxygen Delivery Room Air Room Air 08/09/24 18:52 08/09/24 17:42 08/09/24 17:43 Temperature Pulse Rate 66 57 L 56 L Respiratory Rate 14 23 H 13 Blood Pressure 121/88 122/82 Pulse Oximetry 100 99 100 Oxygen Delivery 08/09/24 17:45 08/09/24 18:00 08/09/24 18:15 Temperature Pulse Rate 51 L 51 L 68 Respiratory Rate 22 H 15 18 Blood Pressure 123/85 Pulse Oximetry 100 100 100 Oxygen Delivery 08/09/24 18:16 08/09/24 18:30 10/23/24 18:31 Temperature Pulse Rate 67 63 62 Respiratory Rate 17 19 15 Blood Pressure 121/88 Pulse Oximetry 100 100 100 Oxygen Delivery 08/09/24 18:51 08/09/24 19:00 08/09/24 21:58 Temperature Pulse Rate 62 60 54 L Respiratory Rate 20 18 18 Blood Pressure 117/80 132/84 Pulse Oximetry 100 100 97 Oxygen Delivery 08/09/24 22:24 08/10/24 05:43 08/10/24 07:44 Temperature 96.8 F L 98.1 F Pulse Rate 81 72 Respiratory Rate 14 14 Blood Pressure 123/60 99/56 L Pulse Oximetry 100 98 99 Oxygen Delivery Room Air 08/10/24 08:24 Temperature Pulse Rate Respiratory Rate Blood Pressure Pulse Oximetry Oxygen Delivery Room Air Intake/Output Intake/Output: Intake & Output 08/07/24 08/08/24 08/09/24 08/10/24 23:59 23:59 23:59 23:59 Intake Total 100 1100 Balance 100 1100 Meds/Results Medications: Active Medications Generic Name Dose Route Start Last Admin Trade Name Freq PRN Reason Stop Dose Admin Acetaminophen 650 mg 08/10/24 10:26 08/10/24 10:31 Acetaminophen 325 Mg Tablet PO 650 mg Q6H PRN Administration Mild Pain (1-3) or Fever Bupropion HCl 300 mg 08/10/24 09:00 08/10/24 08:23 Bupropion Hcl Xl (24 Hr) 150 Mg Tabcr PO 300 mg DAILY VIDHI Administration Hydromorphone HCl 1 mg 08/10/24 09:33 Hydromorphone Hcl Inj (*Crx) 1 Mg/Ml Syr IV PUSH Q4H PRN Pain Rated 7-10 Lactated Ringer's 1,000 mls @ 125 mls/hr 08/09/24 20:45 08/10/24 06:24 Lr - Lactated Ringers Iv IV CONT 125 mls/hr .Q8H VIDHI Administration Piperacillin Sod/Tazobactam Sod 4.5 gm in 100 mls @ 200 mls/hr 08/10/24 06:00 08/10/24 06:18 Zosyn 4.5 Gm/Ns 100 Ml IVPB Infused Q6HR VIDHI Infusion Lorazepam 0.5 mg 08/10/24 09:00 08/10/24 08:23 Lorazepam (*Crx) 0.5 Mg Tablet PO 0.5 mg DAILY VIDHI Administration Mirabegron 25 mg 08/10/24 09:00 08/10/24 08:23 Mirabegron 25 Mg Er Tablet PO 25 mg DAILY VIDHI Administration Atogepant [Qulipta] 60 mg 08/10/24 09:00 08/10/24 08:24 60 Mg Tablet PO 09/09/24 08:59 60 mg DAILY VIDHI Administration Cariprazine [Vraylar 1.5 mg 08/10/24 09:00 08/10/24 08:24 ] 1.5 Mg Capsule PO 09/09/24 08:59 1.5 mg DAILY VIDHI Administration Ondansetron HCl 4 mg 08/09/24 20:42 Ondansetron Inj 4 Mg/2 Ml Vial IV PUSH Q4H PRN Nausea Pantoprazole Sodium 40 mg 08/11/24 09:00 Pantoprazole Sodium Iv 40 Mg Vial IV PUSH QAM [facility] Radiology Results: ITS Impressions Chest X-Ray 08/09/24 17:22 IMPRESSION: 1. No acute cardiopulmonary disease. Abdomen/Pelvis CT 08/09/24 19:32 IMPRESSION: 1. Mild intra and extra hepatic ductal or ductal dilation without evident obstructing stone or mass. Correlate with liver function tests and could consider HIDA scan for further evaluation as clinically indicated. 2. Nonspecific small amount of fluid between the liver and the normal-appearing gallbladder. Could not absent exclude early acute cholecystitis and would correlate for Angelo sign. Could additionally consider either right upper quadrant ultrasound or HIDA scan as clinically indicated. Abdomen Ultrasound 08/09/24 19:46 IMPRESSION: 1. Cholelithiasis with positive sonographic Angelo sign and small amount of pericholecystic fluid consistent with likely early acute cholecystitis. 2. Mild intra and extrahepatic biliary ductal dilation with common bile duct measuring up to 9 mm which suggests a possible distal obstructing stone. Correlate with liver function tests and consider MRCP for further evaluation. Labs Labs: Laboratory Results - last 24 hr 08/09/24 08/09/24 08/09/24 17:03 20:26 23:02 WBC 9.6 RBC 4.07 L Hgb 13.7 Hct 40.0 MCV 98.3 MCH 33.7 MCHC 34.3 RDW 12.1 Plt Count 369 MPV 8.9 Immature Gran % (Auto) 0.4 Neut % (Auto) 79.9 H Lymph % (Auto) 12.6 L Chester % (Auto) 6.7 Eos % (Auto) 0.1 Baso % (Auto) 0.3 Lymph # (Auto) 1.21 Chester # (Auto) 0.6 Eos # (Auto) 0.0 Baso # (Auto) 0.0 Abs Immat Gran (auto) 0.04 H Absolute Neuts (auto) 7.6 H Absolute Nucleated RBC 0.000 Nucleated RBC % 0.0 PT 13.9 INR 1.0 APTT 26.0 Sodium 133 L Potassium 4.0 Chloride 101 Carbon Dioxide 27 Anion Gap 5 BUN 13 Creatinine 0.70 Estim Creat Clear Calc 84 Estimated GFR > 60 Glucose 104 Calcium 9.0 Magnesium Total Bilirubin 2.5 H AST 812 H ALT 437 H Alkaline Phosphatase 86 Troponin I < 0.012 < 0.012 < 0.012 Total Protein 7.0 Albumin 4.2 Lipase 542 H 08/10/24 08:15 WBC 4.7 RBC 3.80 L Hgb 12.7 Hct 37.5 MCV 98.7 MCH 33.4 MCHC 33.9 RDW 12.2 Plt Count 326 MPV 9.2 Immature Gran % (Auto) 0.2 Neut % (Auto) 68.8 Lymph % (Auto) 21.0 Chester % (Auto) 7.8 Eos % (Auto) 1.1 Baso % (Auto) 1.1 Lymph # (Auto) 0.99 Chester # (Auto) 0.4 Eos # (Auto) 0.1 Baso # (Auto) 0.1 Abs Immat Gran (auto) 0.01 Absolute Neuts (auto) 3.3 Absolute Nucleated RBC 0.000 Nucleated RBC % 0.0 PT INR APTT Sodium 135 L Potassium 3.7 Chloride 107 Carbon Dioxide 23 Anion Gap 5 BUN 9 Creatinine 0.70 Estim Creat Clear Calc 86 Estimated GFR > 60 Glucose 89 Calcium 8.5 Magnesium 2.0 Total Bilirubin 2.9 H AST 686 H ALT 827 H Alkaline Phosphatase 79 Troponin I Total Protein 6.0 L Albumin 3.5 Lipase Quality VTE Prophylaxis VTE prophylaxis: mechanical ordered
--- NOTE | 2024-08-10 10:43 | P.CONGS_ITS ---
Assessment and Plan Assessment and plan (1) Choledocholithiasis: Code(s): K80.50 - Calculus of bile duct without cholangitis or cholecystitis without obstruction Status: Acute Assessment and Plan: Imaging showed intra and extrahepatic biliary duct dilatation with cholelithiasis and common bile duct measuring 9 mm on ultrasound. She also presented with elevated LFTs and total bilirubin was 2.5. This is suspicious for choledocholithiasis. MRCP pending. GI consulted for possible ERCP. (2) Cholecystitis with cholelithiasis: Code(s): K80.10 - Calculus of gallbladder with chronic cholecystitis without obstruction Status: Acute Assessment and Plan: Right upper quadrant abdominal ultrasound showed cholelithiasis with mild pericholecystic fluid and a positive sonographic Angelo sign, consistent with possible cholecystitis. Will await MRCP results. Discussed with the patient that she will eventually need a laparoscopic cholecystectomy. We will await MRCP results and GI consultation prior to deciding on timing of surgery. I went ahead and discussed the details of a laparoscopic cholecystectomy that would be done under general anesthesia by Dr. Medeiros. Description of the procedure, risks, benefits, alternatives, and expected recovery were discussed with the patient in detail. We discussed the risks of bile leak and bile duct injury, liver/bowel injury, bleeding, and infection. Also discussed the possibility of having to convert to an open procedure if necessary. She agrees to proceed with surgery when appropriate. (3) Elevated LFTs: Code(s): R79.89 - Other specified abnormal findings of blood chemistry Status: Acute Assessment and Plan: Total bilirubin, AST, and ALT elevated on admission. Total bilirubin 2.5 and up to 2.[address] and ultrasound show biliary duct dilation, suggesting possible choledocholithiasis or passed gallstone. MRCP pending today. Repeat labs ordered for the morning. (4) Acute biliary pancreatitis: Code(s): K85.10 - Biliary acute pancreatitis without necrosis or infection Status: Acute Assessment and Plan: Lipase slightly elevated to [address] scan of the abdomen and pelvis showed no abnormalities of the pancreas. Suspect that this is likely related to choledocholithiasis or passing of a stone. Continue medical management. Abdominal pain has improved significantly today. Plan I have discussed the patient's case and plan of care with Dr. Medeiros. Thank you for allowing us to see the patient in consultation and we will continue to follow along with you. History of Present Illness Consult details Consult date: 08/10/24 Reason for consult: other (Cholecystitis) Requesting physician: Shelley Richard III, DO Narrative: This is a 44-year-old woman who we have been asked to see in surgical consultation for possible cholecystitis. She presented to the ED yesterday with complaints of epigastric and chest pain. She Reports a sudden onset of epigastric abdominal pain around 8:00 a.m. yesterday morning, shortly after eating [place]ian yogurt and drinking and iced coffee with milk for breakfast. She reports associated nausea and chills, but no vomiting. Her pain began to radiate up into her mid chest and into her mid back. As the day went on, her pain progressively got worse and there were no alleviating factors. Therefore, she presented to the ED for evaluation. Labs were significant for white blood cell count of 9600, total bilirubin 2.5, AST 812, ALT 437, lipase 542, and troponin negative x3. Chest x-ray negative. CT scan of the abdomen and pelvis with IV contrast showed mild intra and extrahepatic ductal dilation without evident obstructing stone or mass, and nonspecific small amount of fluid between the liver and the normal-appearing gallbladder. Right upper quadrant abdominal ultrasound shows cholelithiasis with positive sonographic Angelo sign and small amount of pericholecystic fluid consistent with likely early acute cholecystitis, and mild intra and extrahepatic biliary ductal dilatation with common bile duct measuring up to 9 mm which suggests a possible distal obstructing stone. She was admitted to the hospitalist service. GI has also been consulted. MRCP ordered for today. Labs today showed total bilirubin up slightly to 2.9. This morning, she reports her epigastric and chest pain has resolved, but she now has some burning right upper quadrant abdominal pain. She reports having intermittent right upper quadrant abdominal pain over the past few months that she describes as a ?burning? pain. She cannot correlate the pain to eating or any other aggravating factors, and would spontaneously resolved. She has not been seen for this pain in the past as it was mild. Review of Systems Review of Systems: All systems reviewed & are unremarkable except as noted in HPI and below PMFSH Past Medical History Medical History (Updated 08/10/24 @ 10:59 by MAILE Hale) Anxiety and depression Overactive bladder Surgical History Surgical History History of cervical spinal surgery History of shoulder surgery History of total abdominal hysterectomy Laparoscopic total abdominal hysterectomy Social History Social History Smoking packs per day: 1 Smoking cigarettes per day: 20.0 Smoking status: Former smoker Tobacco type: cigarettes Alcohol intake: current Drinks per week: 3 Substance use: current Substance use type: marijuana Other substance usage details: Helps her sleep Last use: 08/08/23 Do You Feel Safe in your Home?: Yes Lack of Transportation: No Lack of Food: Never True Current Housing: I Have Housing Concerned About Future Housing: No Difficulty Paying Gas/Electric Bills: No Difficulty Paying for Meds: No Currently Unemployed: No Education: Associate Degree Difficulty w/ Childcare or Family Care: No Spiritual care concerns: No Meds Home Medications and Allergies Home Medications Medication Instructions Recorded Confirmed Type atogepant 60 mg tablet (Qulipta) 60 mg PO DAILY 08/09/24 08/09/24 History bupropion HCl 300 mg 24 hr tablet, 300 mg PO DAILY 08/09/24 08/09/24 History extended release cariprazine 1.5 mg capsule 1.5 mg PO DAILY 08/09/24 08/09/24 History (Vraylar) lorazepam 0.5 mg tablet 0.5 mg PO DAILY 08/09/24 08/09/24 History mirabegron 25 mg tablet,extended 25 mg PO DAILY 08/09/24 08/09/24 History release 24 hr Allergies Allergy/AdvReac Type Severity Reaction Status Date / Time suture Allergy Unknown VICRYL Verified 08/10/24 05:54 SUTURE REJECTED BY BODY Vital Signs Vital Signs - 24 hr 08/09/24 16:55 08/09/24 18:15 08/09/24 18:16 Temperature 97.8 F Pulse Rate 55 L 69 Respiratory Rate 18 18 Blood Pressure 125/79 123/85 Pulse Oximetry 100 100 100 Oxygen Delivery Room Air Room Air 08/09/24 18:52 08/09/24 17:42 08/09/24 17:43 Temperature Pulse Rate 66 57 L 56 L Respiratory Rate 14 23 H 13 Blood Pressure 121/88 122/82 Pulse Oximetry 100 99 100 Oxygen Delivery 08/09/24 17:45 08/09/24 18:00 08/09/24 18:15 Temperature Pulse Rate 51 L 51 L 68 Respiratory Rate 22 H 15 18 Blood Pressure 123/85 Pulse Oximetry 100 100 100 Oxygen Delivery 08/09/24 18:16 08/09/24 18:30 08/09/24 18:31 Temperature Pulse Rate 67 63 62 Respiratory Rate 17 19 15 Blood Pressure 121/88 Pulse Oximetry 100 100 100 Oxygen Delivery 08/09/24 18:51 08/09/24 19:00 08/09/24 21:58 Temperature Pulse Rate 62 60 54 L Respiratory Rate 20 18 18 Blood Pressure 117/80 132/84 Pulse Oximetry 100 100 97 Oxygen Delivery 08/09/24 22:24 08/10/24 05:43 08/10/24 07:44 Temperature 96.8 F L 98.1 F Pulse Rate 81 72 Respiratory Rate 14 14 Blood Pressure 123/60 99/56 L Pulse Oximetry 100 98 99 Oxygen Delivery Room Air 08/10/24 08:24 Temperature Pulse Rate Respiratory Rate Blood Pressure Pulse Oximetry Oxygen Delivery Room Air Exam Const: General: comfortable and no acute distress Nutritional Appearance: average body habitus Orientation/consciousness: patient oriented x3 HENMT: Head: normocephalic and atraumatic Ears: hearing grossly normal bilaterally Mouth: Yes moist mucous membranes Eyes: General: appearance normal, both eyes and all related structures Pupils: Equal, round and reactive pupils present Neck: Neck: normal visual inspection and full ROM Resp: Effort & Inspection: no respiratory distress Auscultation: clear to auscultation bilaterally Cardio: Rate: regular rate Rhythm: regular rhythm Heart sounds: S1 normal heart sound present and S2 normal heart sound present Peripheral pulses: Peripheral pulses 2+ throughout GI: Inspection: non-distended and striae GI Palp: Yes Soft to palpation, Yes Tenderness to palpation present (GI) (Right upper quadrant), No Guarding due to palpation present (GI) and No Rebound tenderness present Auscultation: normal bowel sounds Skin: General skin exam: normal color Neuro: General: moves all extremities and no focal motor deficits Speech: normal speech Motor exam (neuro): 5/5 motor strength present throughout Extrem: General: normal to inspection and no edema Psych: Mental Status: mental status grossly normal Attitude: cooperative Insight: Good insight present (Psych) Judgement: Good judgement present (Psych) Results Labs 08/10/24 08:15 08/10/24 08:15 Labs: Abnormal lab results 08/09/24 08/10/24 Range/Units 17:03 08:15 RBC 4.07 L 3.80 L (4.2-5.4) M/mm3 Neut % (Auto) 79.9 H (45.5-73.1) % Lymph % (Auto) 12.6 L (18.3-44.2) % Abs Immat Gran (auto) 0.04 H (0.00-0.031) K/mm3 Absolute Neuts (auto) 7.6 H (1.3-6.7) K/mm3 Sodium 133 L 135 L (137-145) mmol/L Total Bilirubin 2.5 H 2.9 H (0.2-1.3) mg/dL AST 812 H 686 H (14-36) U/L ALT 437 H 827 H (6-35) U/L Total Protein 6.0 L (6.3-8.2) g/dL Lipase 542 H (23-300) U/L Diabetes panel 08/09/24 08/10/24 Range/Units 17:03 08:15 Sodium 133 L 135 L (137-145) mmol/L Potassium 4.0 3.7 (3.4-5.0) mmol/L Chloride 101 107 (98-107) mmol/L Carbon Dioxide 27 23 (22-30) mmol/L BUN 13 9 (7-17) mg/dL Creatinine 0.70 0.70 (0.7-1.0) mg/dL Glucose 104 89 (65-110) mg/dL Calcium 9.0 8.5 (8.4-10.2) mg/dL AST 812 H 686 H (14-36) U/L ALT 437 H 827 H (6-35) U/L Alkaline Phosphatase 86 79 (38-126) U/L Total Protein 7.0 6.0 L (6.3-8.2) g/dL Albumin 4.2 3.5 (3.5-5.1) g/dL Calcium panel 08/09/24 08/10/24 Range/Units 17:03 08:15 Calcium 9.0 8.5 (8.4-10.2) mg/dL Albumin 4.2 3.5 (3.5-5.1) g/dL Pituitary panel 08/09/24 08/10/24 Range/Units 17:03 08:15 Sodium 133 L 135 L (137-145) mmol/L Potassium 4.0 3.7 (3.4-5.0) mmol/L Chloride 101 107 (98-107) mmol/L Carbon Dioxide 27 23 (22-30) mmol/L BUN 13 9 (7-17) mg/dL Creatinine 0.70 0.70 (0.7-1.0) mg/dL Glucose 104 89 (65-110) mg/dL Calcium 9.0 8.5 (8.4-10.2) mg/dL Adrenal panel 08/09/24 08/10/24 Range/Units 17:03 08:15 Sodium 133 L 135 L (137-145) mmol/L Potassium 4.0 3.7 (3.4-5.0) mmol/L Chloride 101 107 (98-107) mmol/L Carbon Dioxide 27 23 (22-30) mmol/L BUN 13 9 (7-17) mg/dL Creatinine 0.70 0.70 (0.7-1.0) mg/dL Glucose 104 89 (65-110) mg/dL Calcium 9.0 8.5 (8.4-10.2) mg/dL Total Bilirubin 2.5 H 2.9 H (0.2-1.3) mg/dL AST 812 H 686 H (14-36) U/L ALT 437 H 827 H (6-35) U/L Alkaline Phosphatase 86 79 (38-126) U/L Total Protein 7.0 6.0 L (6.3-8.2) g/dL Albumin 4.2 3.5 (3.5-5.1) g/dL All other labs normal. Imaging Additional studies: ITS Impressions Chest X-Ray 08/09/24 17:22 IMPRESSION: 1. No acute cardiopulmonary disease. Abdomen/Pelvis CT 08/09/24 19:32 IMPRESSION: 1. Mild intra and extra hepatic ductal or ductal dilation without evident obstructing stone or mass. Correlate with liver function tests and could consider HIDA scan for further evaluation as clinically indicated. 2. Nonspecific small amount of fluid between the liver and the normal-appearing gallbladder. Could not absent exclude early acute cholecystitis and would correlate for Angelo sign. Could additionally consider either right upper quadrant ultrasound or HIDA scan as clinically indicated. Abdomen Ultrasound 08/09/24 19:46 IMPRESSION: 1. Cholelithiasis with positive sonographic Angelo sign and small amount of pericholecystic fluid consistent with likely early acute cholecystitis. 2. Mild intra and extrahepatic biliary ductal dilation with common bile duct measuring up to 9 mm which suggests a possible distal obstructing stone. Correlate with liver function tests and consider MRCP for further evaluation.
[2024-08-10 14:00] VITALS: BP 104/69; PULSE 60; RESP 16; TEMP 37.1; O2SAT 100
--- NOTE | 2024-08-10 16:57 | WPDGICN ---
Assessment and Plan Assessment and plan (1) Cholecystitis with cholelithiasis: Code(s): K80.10 - Calculus of gallbladder with chronic cholecystitis without obstruction Status: Acute Assessment and Plan: mrcp reviewed and no stone in bile duct- no need of ercp unless any changes surgery on board probably already passed stone already feeling better (2) Elevated LFTs: Code(s): R79.89 - Other specified abnormal findings of blood chemistry Status: Acute Assessment and Plan: will trend biliary related will get hepatitis panel GI Consult Note Consult date/time: 08/10/24 16:57 Reason for consult: elevated liver enzymes, cholelithiasis. HPI: Alisa Mahoney is a 44 year old female here with new onset of epigastric abdominal pain that started yesterday in the morning, shortly after eating [place] yogurt and drinking milk for breakfast. She also had nausea and chills, but no vomiting. Pain radiated up into her mid chest and into her mid back. Pain got much worse and came to ER, labs showed white blood cell count of 9600, total bilirubin 2.5, AST 812, ALT 437, lipase 542, and troponin negative x3. Chest x-ray negative. CT scan of the abdomen and pelvis with IV contrast showed mild intra and extrahepatic ductal dilation without evident obstructing stone or mass, and nonspecific small amount of fluid between the liver and the normal-appearing gallbladder. Right upper quadrant abdominal ultrasound shows cholelithiasis with positive sonographic Angelo sign and small amount of pericholecystic fluid consistent with likely early acute cholecystitis, and mild intra and extrahepatic biliary ductal dilatation with common bile duct measuring up to 9 mm. MRCP just completed Mildly dilated common duct. No choledocholithiasis. Cholelithiasis. Gallbladder distention Review of Systems Constitutional: Constitutional: Reports chills Eyes: Eyes: Denies blurry vision ENT: Reports Normal hearing present, Denies headache(s) and Denies neck pain Cardiovascular: Cardiovascular: Denies chest pain and Denies dyspnea Respiratory: Respiratory: Denies dyspnea Gastrointestinal: Gastrointestinal: Reports no additional gastrointestinal complaints Genitourinary: Genitourinary: Denies dysuria Musculoskeletal: Musculoskeletal: Denies neck pain Integumentary/Breasts: Skin/Breast: Denies dry skin Neurologic: Reports Normal hearing present, Denies headache(s) and Denies weakness Psychiatric: Psychiatric: Denies anxiety PMFSH Past Medical History Medical History (Updated 08/10/24 @ 10:59 by MAILE Hale) Anxiety and depression Overactive bladder Surgical History Surgical History History of cervical spinal surgery History of shoulder surgery History of total abdominal hysterectomy Laparoscopic total abdominal hysterectomy Social History Social History Smoking packs per day: 1 Smoking cigarettes per day: 20.0 Smoking status: Former smoker Tobacco type: cigarettes Alcohol intake: current Drinks per week: 3 Substance use: current Substance use type: marijuana Other substance usage details: Helps her sleep Last use: 08/08/23 Do You Feel Safe in your Home?: Yes Lack of Transportation: No Lack of Food: Never True Current Housing: I Have Housing Concerned About Future Housing: No Difficulty Paying Gas/Electric Bills: No Difficulty Paying for Meds: No Currently Unemployed: No Education: Associate Degree Difficulty w/ Childcare or Family Care: No Spiritual care concerns: No Meds Home Medications and Allergies Home Medications Medication Instructions Recorded Confirmed Type atogepant 60 mg tablet (Qulipta) 60 mg PO DAILY 08/09/24 08/09/24 History bupropion HCl 300 mg 24 hr tablet, 300 mg PO DAILY 08/09/24 08/09/24 History extended release cariprazine 1.5 mg capsule 1.5 mg PO DAILY 08/09/24 08/09/24 History (Vraylar) lorazepam 0.5 mg tablet 0.5 mg PO DAILY 08/09/24 08/09/24 History mirabegron 25 mg tablet,extended 25 mg PO DAILY 08/09/24 08/09/24 History release 24 hr Allergies Allergy/AdvReac Type Severity Reaction Status Date / Time suture Allergy Unknown VICRYL Verified 08/10/24 05:54 SUTURE REJECTED BY BODY Vital Signs Vital Signs - 24 hr 08/09/24 18:15 08/09/24 18:16 08/09/24 18:52 Temperature Pulse Rate 69 66 Respiratory Rate 18 14 Blood Pressure 123/85 121/88 Pulse Oximetry 100 100 100 Oxygen Delivery Room Air 08/09/24 17:42 08/09/24 17:43 08/09/24 17:45 Temperature Pulse Rate 57 L 56 L 51 L Respiratory Rate 23 H 13 22 H Blood Pressure 122/82 Pulse Oximetry 99 100 100 Oxygen Delivery 08/09/24 18:00 08/09/24 18:15 08/09/24 18:16 Temperature Pulse Rate 51 L 68 67 Respiratory Rate 15 18 17 Blood Pressure 123/85 Pulse Oximetry 100 100 100 Oxygen Delivery 08/09/24 18:30 08/09/24 18:31 08/09/24 18:51 Temperature Pulse Rate 63 62 62 Respiratory Rate 19 15 20 Blood Pressure 121/88 Pulse Oximetry 100 100 100 Oxygen Delivery 08/09/24 19:00 08/09/24 21:58 08/09/24 22:24 Temperature 96.8 F L Pulse Rate 60 54 L 81 Respiratory Rate 18 18 14 Blood Pressure 117/80 132/84 123/60 Pulse Oximetry 100 97 100 Oxygen Delivery 08/10/24 05:43 08/10/24 07:44 08/10/24 08:24 Temperature 98.1 F Pulse Rate 72 Respiratory Rate 14 Blood Pressure 99/56 L Pulse Oximetry 98 99 Oxygen Delivery Room Air Room Air 08/10/24 14:00 Temperature 98.8 F Pulse Rate 60 Respiratory Rate 16 Blood Pressure 104/69 Pulse Oximetry 100 Oxygen Delivery Exam Const: General: comfortable and no acute distress Nutritional Appearance: average body habitus Orientation/consciousness: patient oriented x3 HENMT: Head: normocephalic and atraumatic Ears: hearing grossly normal bilaterally Eyes: General: appearance normal, both eyes and all related structures Pupils: Equal, round and reactive pupils present Neck: Neck: normal visual inspection and full ROM Resp: Effort & Inspection: no respiratory distress Auscultation: clear to auscultation bilaterally Cardio: Rate: regular rate Rhythm: regular rhythm GI: Inspection: non-distended GI Palp: Yes Soft to palpation, Yes Tenderness to palpation present (GI) (Right upper quadrant), No Guarding due to palpation present (GI) and No Rebound tenderness present Auscultation: normal bowel sounds Skin: General skin exam: normal color Neuro: General: moves all extremities and no focal motor deficits Speech: normal speech Motor exam (neuro): 5/5 motor strength present throughout Extrem: General: normal to inspection and no edema Psych: Mental Status: mental status grossly normal Attitude: cooperative Insight: Good insight present (Psych) Judgement: Good judgement present (Psych) Results Labs 08/10/24 08:15 08/10/24 08:15 Labs: Short CBC 08/09/24 08/10/24 Range/Units 17:03 08:15 WBC 9.6 4.7 (4.5-10.0) K/mm3 Hgb 13.7 12.7 (12.0-15.0) g/dL Hct 40.0 37.5 (37.0-47.0) % Plt Count 369 326 (150-375) k/mm3 BMP 08/09/24 08/10/24 17:03 08:15 Sodium 133 L 135 L Potassium 4.0 3.7 Chloride 101 107 Carbon Dioxide 27 23 BUN 13 9 Creatinine 0.70 0.70 Glucose 104 89 Calcium 9.0 8.5 Cardiac Enzymes 08/09/24 08/09/24 08/09/24 Range/Units 17:03 20:26 23:02 Troponin I < 0.012 < 0.012 < 0.012 (0.000-0.034) ng/mL Liver Function 08/09/24 08/10/24 Range/Units 17:03 08:15 Total Bilirubin 2.5 H 2.9 H (0.2-1.3) mg/dL AST 812 H 686 H (14-36) U/L ALT 437 H 827 H (6-35) U/L Alkaline Phosphatase 86 79 (38-126) U/L Albumin 4.2 3.5 (3.5-5.1) g/dL
[2024-08-10 21:27] VITALS: BP 113/67; PULSE 65; RESP 14; TEMP 37; O2SAT 100
[2024-08-11] VITALS (10 sets, daily range): BP systolic 111–142; BP diastolic 44–82; PULSE 59–92; RESP 12–20; TEMP 36.6–37.6; O2SAT 99–100
[2024-08-11] MEDS: PIPERACILLIN/TAZ 4.5G/NS 100ML 4.5 GM/100 ML BAG IVPB ×3 (00:46→12:00)
[2024-08-11] MEDS: LACTATED RINGERS 1,000 ML 125 ML IV CONT (04:35)
[2024-08-11] MEDS: ACETAMINOPHEN 325 MG TABLET 650 MG PO ×2 (04:36→11:00)
[2024-08-11 07:23] LABS: Basophils Percent Auto 0.8 % (0.2-1.2); Eosinophils Absolute Auto 0.1 K/mm3 (0-0.3); Eosinophils Percent Auto 1.2 % (0-4.4); Hematocrit 35.8 % (37.0-47.0); Hemoglobin 12.2 g/dL (12.0-15.0); Immature Granulocyte Absolute 0.02 K/mm3 (0.00-0.031); Immature Granulocyte Percent A 0.4 % (0-0.5); Lymphocytes Absolute Auto 1.08 K/mm3 (0.9-3.2); Lymphocytes Percent Auto 21.6 % (18.3-44.2); Mean Corpuscular HGB Conc 34.1 g/dl (32-36); Mean Corpuscular Hemoglobin 33.3 pg (26-34); Mean Corpuscular Volume 97.8 fl (80-100); Monocytes Absolute Auto 0.4 K/mm3 (0.1-0.6); Monocytes Percent Auto 8.4 % (2.6-8.5); Neutrophils Absolute Auto 3.4 K/mm3 (1.3-6.7); Neutrophils Percent Auto 67.6 % (45.5-73.1); Platelet Count Result 320 k/mm3 (150-375); Red Blood Count 3.66 M/mm3 (4.2-5.4); Red Cell Distribution Width 11.9 % (11.5-14.5)
[2024-08-11 07:34] LABS: Alanine Aminotransferase 486 U/L (6-35); Albumin Level 3.1 g/dL (3.5-5.1); Alkaline Phosphatase 73 U/L (38-126); Anion Gap 3 mmol/L (4-12); Aspartate Amino Transferase 176 U/L (14-36); Bilirubin,Total 1.9 mg/dL (0.2-1.3); Blood Urea Nitrogen 7 mg/dL (7-17); Calcium 8.3 mg/dL (8.4-10.2); Carbon Dioxide 24 mmol/L (22-30); Chloride 105 mmol/L (98-107); Estimated CRCL calculation 76 ml/min; Estimated Glomerular Filt Rate > 60; Glucose 87 mg/dL (65-110); Lipase 229 U/L (23-300); Potassium 3.8 mmol/L (3.4-5.0); Sodium 132 mmol/L (137-145)
[2024-08-11] MEDS: buPROPion HCL XL (24 HR) 150 MG TABCR 300 MG PO (08:33)
[2024-08-11] MEDS: MIRABEGRON 25 MG ER TABLET PO (08:33)
[2024-08-11] MEDS: LORazepam (*CRX) 0.5 MG TABLET PO (08:33)
[2024-08-11] MEDS: ATOGEPANT 60 MG 60 EACH PO (08:34)
[2024-08-11] MEDS: PANTOPRAZOLE SODIUM IV 40 MG VIAL IV PUSH (08:38)
--- NOTE | 2024-08-11 10:35 | P.PNIM_ITS ---
Progress Note: A&P Assessment and Plan (1) Acute cholecystitis: Code(s): K81.0 - Acute cholecystitis Status: Acute Assessment and Plan: * admit to regular medical floor * Receiving IV Zosyn * GI and surgery following. * AST 766, ALT 486, total bilirubin 1.9 (labs improving). * Monitor labs. * NPO for Cholescystectomy today. * LR @125 ml/hr. (2) Choledocholithiasis: Code(s): K80.50 - Calculus of bile duct without cholangitis or cholecystitis without obstruction Status: Acute Assessment and Plan: * GI and General surgery following (3) Head ache: Code(s): R51.9 - Headache, unspecified Status: Acute Assessment and Plan: * Tylenol 650 mg PO q6 PRN. * LR @ 125 ml/hr. Subjective Date/time seen: 08/11/24 10:35 Interval history: Patient denies chest pain, palpitations, dizziness, abdominal pain, nausea, or vomiting. Patient reports a headache that is a 4 , constant, and aching. Patient at bedside. Patient reports that she is ready to get her surgery behind her. Reports last bowel movement was yesterday. Review of Systems Review of Systems: All systems reviewed & are unremarkable except as noted in HPI and below Exam Const: General: comfortable and no acute distress Resp: Effort & Inspection: normal respiratory effort Auscultation: clear to auscultation bilaterally Cardio: Rate: regular rate Rhythm: regular rhythm GI: GI Palp: Yes Soft to palpation Auscultation: normal bowel sounds Skin: General skin exam: no rashes or lesions noted Neuro: Speech: normal speech Extrem: General: no pedal edema Psych: Mental Status: mental status grossly normal Affect: normal affect Objective Data Vital Signs Vital Signs: Vital Signs - 24 hr 08/10/24 14:00 08/10/24 21:27 08/11/24 05:18 Temperature 98.8 F 98.6 F 98.4 F Pulse Rate 60 65 69 Respiratory Rate 16 14 12 Blood Pressure 104/69 113/67 111/52 L Pulse Oximetry 100 100 99 Oxygen Delivery 08/11/24 08:00 Temperature Pulse Rate Respiratory Rate Blood Pressure Pulse Oximetry Oxygen Delivery Room Air Intake/Output Intake/Output: Intake & Output 08/08/24 08/09/24 08/10/2425/24 23:59 23:59 23:59 23:59 Intake Total 100 2300 1018.8 Balance 100 2300 1018.8 Meds/Results Medications: Active Medications Generic Name Dose Route Start Last Admin Trade Name Freq PRN Reason Stop Dose Admin Acetaminophen 650 mg 08/10/24 10:26 08/11/24 04:36 Acetaminophen 325 Mg Tablet PO 650 mg Q6H PRN Administration Mild Pain (1-3) or Fever Bupropion HCl 300 mg 08/10/24 09:00 08/11/24 08:33 Bupropion Hcl Xl (24 Hr) 150 Mg Tabcr PO 300 mg DAILY VIDHI Administration Hydromorphone HCl 1 mg 08/10/24 09:33 Hydromorphone Hcl Inj (*Crx) 1 Mg/Ml Syr IV PUSH Q4H PRN Pain Rated 7-10 Lactated Ringer's 1,000 mls @ 125 mls/hr 08/09/24 20:45 08/11/24 04:35 Lr - Lactated Ringers Iv IV CONT 125 mls/hr .Q8H VIDHI Administration Piperacillin Sod/Tazobactam Sod 4.5 gm in 100 mls @ 200 mls/hr 08/10/24 06:00 08/11/24 06:11 Zosyn 4.5 Gm/Ns 100 Ml IVPB 200 mls/hr Q6HR VIDHI Administration Lorazepam 0.5 mg 08/10/24 09:00 08/11/24 08:33 Lorazepam (*Crx) 0.5 Mg Tablet PO 0.5 mg DAILY VIDHI Administration Mirabegron 25 mg 08/10/24 09:00 08/11/24 08:33 Mirabegron 25 Mg Er Tablet PO 25 mg DAILY VIDHI Administration Atogepant [Qulipta] 60 mg 08/10/24 09:00 08/11/24 08:34 60 Mg Tablet PO 09/09/24 08:59 60 mg DAILY VIDHI Administration Cariprazine [Vraylar 1.5 mg 08/10/24 09:00 08/11/24 08:33 ] 1.5 Mg Capsule PO 09/09/24 08:59 1.5 mg DAILY VIDHI Administration Ondansetron HCl 4 mg 08/09/24 20:42 Ondansetron Inj 4 Mg/2 Ml Vial IV PUSH Q4H PRN Nausea Pantoprazole Sodium 40 mg 08/11/24 09:00 08/11/24 08:38 Pantoprazole Sodium Iv 40 Mg Vial IV PUSH 40 mg QAM VIDHI Administration Radiology Results: ITS Impressions Chest X-Ray 08/09/24 17:22 IMPRESSION: 1. No acute cardiopulmonary disease. Abdomen/Pelvis CT 08/09/24 19:32 IMPRESSION: 1. Mild intra and extra hepatic ductal or ductal dilation without evident obstructing stone or mass. Correlate with liver function tests and could consider HIDA scan for further evaluation as clinically indicated. 2. Nonspecific small amount of fluid between the liver and the normal-appearing gallbladder. Could not absent exclude early acute cholecystitis and would correlate for Angelo sign. Could additionally consider either right upper q uadrant ultrasound or HIDA scan as clinically indicated. Abdomen Ultrasound 08/09/24 19:46 IMPRESSION: 1. Cholelithiasis with positive sonographic Angelo sign and small amount of pericholecystic fluid consistent with likely early acute cholecystitis. 2. Mild intra and extrahepatic biliary ductal dilation with common bile duct measuring up to 9 mm which suggests a possible distal obstructing stone. Correlate with liver function tests and consider MRCP for further evaluation. MRCP 08/10/24 13:26 IMPRESSION: 1. Mildly dilated common duct. No choledocholithiasis. 2. Cholelithiasis. Gallbladder distention may be secondary to fasting. Labs Labs: Laboratory Results - last 24 hr 08/11/24 08/11/24 07:05 07:06 WBC 5.0 RBC 3.66 L Hgb 12.2 Hct 35.8 L MCV 97.8 MCH 33.3 MCHC 34.1 RDW 11.9 Plt Count 320 MPV 9.0 Immature Gran % (Auto) 0.4 Neut % (Auto) 67.6 Lymph % (Auto) 21.6 [place] % (Auto) 8.4 Eos % (Auto) 1.2 Baso % (Auto) 0.8 Lymph # (Auto) 1.08 [place] # (Auto) 0.4 Eos # (Auto) 0.1 Baso # (Auto) 0.0 Abs Immat Gran (auto) 0.02 Absolute Neuts (auto) 3.4 Absolute Nucleated RBC 0.000 Nucleated RBC % 0.0 Sodium 132 L Potassium 3.8 Chloride 105 Carbon Dioxide 24 Anion Gap 3 L BUN 7 Creatinine 0.80 Estim Creat Clear Calc 76 Estimated GFR > 60 Glucose 87 Calcium 8.3 L Total Bilirubin 1.9 H AST 176 H ALT 486 H Alkaline Phosphatase 73 Total Protein 6.0 L Albumin 3.1 L Lipase 229 Blood Type O Positive Antibody Screen Negative Quality VTE Prophylaxis VTE prophylaxis: mechanical ordered
--- NOTE | 2024-08-11 11:24 | WPDGIPROGNO ---
Progress Note: A&P Assessment and Plan (1) Acute cholecystitis: Code(s): K81.0 - Acute cholecystitis Status: Acute Assessment and Plan: mrcp reviewed, normal bile duct without stones no need of ercp, probably stone already passed lap ivory today will follow as needed (2) Cholelithiasis: Code(s): K80.20 - Calculus of gallbladder without cholecystitis without obstruction Status: Acute (3) Elevated LFTs: Code(s): R79.89 - Other specified abnormal findings of blood chemistry Status: Acute Assessment and Plan: GB related monitor (4) RUQ pain: Code(s): R10.11 - Right upper quadrant pain Status: Acute Assessment and Plan: almost gone (5) Nausea: Code(s): R11.0 - Nausea Status: Acute Subjective Date/time seen: 08/11/24 11:24 Interval history: no more pain schedule for lap ivory today Review of Systems Review of Systems: All systems reviewed & are unremarkable except as noted in HPI and below Exam Const: General: comfortable and no acute distress Nutritional Appearance: average body habitus Orientation/consciousness: patient oriented x3 HENMT: Head: normocephalic and atraumatic Ears: hearing grossly normal bilaterally Eyes: General: appearance normal, both eyes and all related structures Pupils: Equal, round and reactive pupils present Neck: Neck: normal visual inspection and full ROM Resp: Effort & Inspection: no respiratory distress Auscultation: clear to auscultation bilaterally Cardio: Rate: regular rate Rhythm: regular rhythm GI: Inspection: non-distended GI Palp: Yes Soft to palpation, No Tenderness to palpation present (GI) and No Guarding due to palpation present (GI) Auscultation: normal bowel sounds Skin: General skin exam: normal color Neuro: General: moves all extremities and no focal motor deficits Speech: normal speech Motor exam (neuro): 5/5 motor strength present throughout Extrem: General: normal to inspection and no edema Psych: Mental Status: mental status grossly normal Attitude: cooperative Insight: Good insight present (Psych) Judgement: Good judgement present (Psych) Objective Data Vital Signs Vital Signs: Vital Signs - 24 hr 08/10/24 14:00 08/10/24 21:27 08/11/24 05:18 Temperature 98.8 F 98.6 F 98.4 F Pulse Rate 60 65 69 Respiratory Rate 16 14 12 Blood Pressure 104/69 113/67 111/52 L Pulse Oximetry 100 100 99 Oxygen Delivery 08/11/24 08:00 Temperature Pulse Rate Respiratory Rate Blood Pressure Pulse Oximetry Oxygen Delivery Room Air Intake/Output Intake/Output: Intake & Output 08/08/24 08/09/24 08/10/24 08/11/24 23:59 23:59 23:59 23:59 Intake Total 100 2300 1018.8 Balance 100 2300 1018.8 Meds/Results Medications: Active Medications Generic Name Dose Route Start Last Admin Trade Name Freq PRN Reason Stop Dose Admin Acetaminophen 650 mg 08/10/24 10:26 08/11/24 04:36 Acetaminophen 325 Mg Tablet PO 650 mg Q6H PRN Administration Mild Pain (1-3) or Fever Bupropion HCl 300 mg 08/10/24 09:00 08/11/24 08:33 Bupropion Hcl Xl (24 Hr) 150 Mg Tabcr PO 300 mg DAILY VIDHI Administration Hydromorphone HCl 1 mg 08/10/24 09:33 Hydromorphone Hcl Inj (*Crx) 1 Mg/Ml Syr IV PUSH Q4H PRN Pain Rated 7-10 Lactated Ringer's 1,000 mls @ 125 mls/hr 08/09/24 20:45 08/11/24 04:35 Lr - Lactated Ringers Iv IV CONT 125 mls/hr .Q8H VIDHI Administration Piperacillin Sod/Tazobactam Sod 4.5 gm in 100 mls @ 200 mls/hr 08/10/24 06:00 08/11/24 06:11 Zosyn 4.5 Gm/Ns 100 Ml IVPB 200 mls/hr Q6HR VIDHI Administration Lorazepam 0.5 mg 08/10/24 09:00 08/11/24 08:33 Lorazepam (*Crx) 0.5 Mg Tablet PO 0.5 mg DAILY VIDHI Administration Mirabegron 25 mg 08/10/24 09:00 08/11/24 08:33 Mirabegron 25 Mg Er Tablet PO 25 mg DAILY VIDHI Administration Atogepant [Qulipta] 60 mg 08/10/24 09:00 08/11/24 08:34 60 Mg Tablet PO 09/09/24 08:59 60 mg DAILY VIDHI Administration Cariprazine [Vraylar 1.5 mg 10/24/24 09:00 08/11/24 08:33 ] 1.5 Mg Capsule PO 09/09/24 08:59 1.5 mg DAILY VIDHI Administration Ondansetron HCl 4 mg 08/09/24 20:42 Ondansetron Inj 4 Mg/2 Ml Vial IV PUSH Q4H PRN Nausea Pantoprazole Sodium 40 mg 08/11/24 09:00 08/11/24 08:38 Pantoprazole Sodium Iv 40 Mg Vial IV PUSH 40 mg QAM VIDHI Administration Radiology Results: ITS Impressions Chest X-Ray 08/09/24 17:22 IMPRESSION: 1. No acute cardiopulmonary disease. Abdomen/Pelvis CT 08/09/24 19:32 IMPRESSION: 1. Mild intra and extra hepatic ductal or ductal dilation without evident obstructing stone or mass. Correlate with liver function tests and could consider HIDA scan for further evaluation as clinically indicated. 2. Nonspecific small amount of fluid between the liver and the normal-appearing gallbladder. Could not absent exclude early acute cholecystitis and would correlate for Angelo sign. Could additionally consider either right upper quadrant ultrasound or HIDA scan as clinically indicated. Abdomen Ultrasound 08/09/24 19:46 IMPRESSION: 1. Cholelithiasis with positive sonographic Angelo sign and small amount of pericholecystic fluid consistent with likely early acute cholecystitis. 2. Mild intra and extrahepatic biliary ductal dilation with common bile duct measuring up to 9 mm which suggests a possible distal obstructing stone. Correlate with liver function tests and consider MRCP for further evaluation. MRCP 08/10/24 13:26 IMPRESSION: 1. Mildly dilated common duct. No choledocholithiasis. 2. Cholelithiasis. Gallbladder distention may be secondary to fasting. Labs Labs: Laboratory Results - last 24 hr 08/11/24 08/11/24 07:05 07:06 WBC 5.0 RBC 3.66 L Hgb 12.2 Hct 35.8 L MCV 97.8 MCH 33.3 MCHC 34.1 RDW 11.9 Plt Count 320 MPV 9.0 Immature Gran % (Auto) 0.4 Neut % (Auto) 67.6 Lymph % (Auto) 21.6 [place] % (Auto) 8.4 Eos % (Auto) 1.2 Baso % (Auto) 0.8 Lymph # (Auto) 1.08 [place] # (Auto) 0.4 Eos # (Auto) 0.1 Baso # (Auto) 0.0 Abs Immat Gran (auto) 0.02 Absolute Neuts (auto) 3.4 Absolute Nucleated RBC 0.000 Nucleated RBC % 0.0 Sodium 132 L Potassium 3.8 Chloride 105 Carbon Dioxide 24 Anion Gap 3 L BUN 7 Creatinine 0.80 Estim Creat Clear Calc 76 Estimated GFR > 60 Glucose 87 Calcium 8.3 L Total Bilirubin 1.9 H AST 176 H ALT 486 H Alkaline Phosphatase 73 Total Protein 6.0 L Albumin 3.1 L Lipase 229 Blood Type O Positive Antibody Screen Negative
[2024-08-11 13:35] LABS: Hepatitis B Surface Antigen Negative (Negative)
[2024-08-11 13:41] LABS: HAV RESULT Negative (Negative); Hepatitis B Core IgM Result Negative (Negative)
[2024-08-11 13:52] LABS: Hepatitis C Virus Antibody Negative (Negative)
--- NOTE | 2024-08-11 14:34 | P.PNAN_ITS ---
Anes - Initial Pre Proc Eval Procedure: Operation Date: 08/11/24 14:00 Proposed Procedures p Laparoscopic Cholecystectomy with Intra Operative Cholangiogram - Adria Medeiros MD Date/Time: 08/11/24 14:34 Surgeon: Sridevi Graham MD Pre Op Diagnosis: Cholecystitis/Choledocolithiasis Patient Data Age: 44 Gender: F Height: 1.71 m Weight: 70.6 kg Last Vital Signs Temp 99.7 F H 08/11/24 13:00 Pulse 68 08/11/24 13:00 Resp 18 08/11/24 13:00 BP 116/76 08/11/24 13:00 Pulse Ox 99 08/11/24 13:00 O2 Del Method Room Air 08/11/24 13:00 Allergies Allergy/AdvReac Type Severity Reaction Status Date / Time suture Allergy Unknown VICRYL Verified 08/11/24 14:06 SUTURE REJECTED BY BODY Home Medications Medication Instructions Recorded Confirmed Type atogepant 60 mg tablet (Qulipta) 60 mg PO DAILY 08/09/24 08/09/24 History bupropion HCl 300 mg 24 hr tablet, 300 mg PO DAILY 08/09/24 08/09/24 History extended release cariprazine 1.5 mg capsule 1.5 mg PO DAILY 08/09/24 08/09/24 History (Vraylar) lorazepam 0.5 mg tablet 0.5 mg PO DAILY 08/09/24 08/09/24 History mirabegron 25 mg tablet,extended 25 mg PO DAILY 08/09/24 08/09/24 History release 24 hr Laboratory Tests 08/11/24 08/11/24 07:05 07:06 WBC 5.0 K/mm3 (4.5-10.0) RBC 3.66 L M/mm3 (4.2-5.4) Hgb 12.2 g/dL (12.0-15.0) Hct 35.8 L % (37.0-47.0) MCV 97.8 fl (80-100) MCH 33.3 pg (26-34) MCHC 34.1 g/dl (32-36) RDW 11.9 % (11.5-14.5) Plt Count 320 k/mm3 (150-375) MPV 9.0 fl (7.4-10.4) Immature Gran % (Auto) 0.4 % (0-0.5) Neut % (Auto) 67.6 % (45.5-73.1) Lymph % (Auto) 21.6 % (18.3-44.2) [place] % (Auto) 8.4 % (2.6-8.5) Eos % (Auto) 1.2 % (0-4.4) Baso % (Auto) 0.8 % (0.2-1.2) Lymph # (Auto) 1.08 K/mm3 (0.9-3.2) [place] # (Auto) 0.4 K/mm3 (0.1-0.6) Eos # (Auto) 0.1 K/mm3 (0-0.3) Baso # (Auto) 0.0 K/mm3 (0.0-0.1) Abs Immat Gran (auto) 0.02 K/mm3 (0.00-0.031) Absolute Neuts (auto) 3.4 K/mm3 (1.3-6.7) Absolute Nucleated RBC 0.000 K/mm3 (0.0-0.012) Nucleated RBC % 0.0 % (0.0-0.2) Sodium 132 L mmol/L (137-145) Potassium 3.8 mmol/L (3.4-5.0) Chloride 105 mmol/L (98-107) Carbon Dioxide 24 mmol/L (22-30) Anion Gap 3 L mmol/L (4-12) BUN 7 mg/dL (7-17) Creatinine 0.80 mg/dL (0.7-1.0) Estim Creat Clear Calc 76 ml/min Estimated GFR > 60 (59 - ) Glucose 87 mg/dL (65-110) Calcium 8.3 L mg/dL (8.4-10.2) Total Bilirubin 1.9 H mg/dL (0.2-1.3) AST 176 H U/L (14-36) ALT 486 H U/L (6-35) Alkaline Phosphatase 73 U/L (38-126) Total Protein 6.0 L g/dL (6.3-8.2) Albumin 3.1 L g/dL (3.5-5.1) Lipase 229 U/L (23-300) Hepatitis A IgM Ab Negative (Negative) Hep Bs Antigen Negative (Negative) Hep B Core IgM Ab Negative (Negative) Hepatitis C Ab Screen Negative (Negative) Blood Type O Positive Antibody Screen Negative Patient hx anesthesia problems: none Family hx anesthesia problems: none Results Review: All pre-operative results and documents have been reviewed as part of the pre- operative evaluation. [facility] Past Medical History Medical History Anxiety and depression Nausea Overactive bladder RUQ pain Surgical History Surgical History History of cervical spinal surgery History of shoulder surgery History of total abdominal hysterectomy Laparoscopic total abdominal hysterectomy Social History Social History Smoking packs per day: 1 Smoking cigarettes per day: 20.0 Smoking status: Former smoker Tobacco type: cigarettes Alcohol intake: current Drinks per week: 3 Substance use: current Substance use type: marijuana Other substance usage details: Helps her sleep Last use: 08/08/23 Do You Feel Safe in your Home?: Yes Lack of Transportation: No Lack of Food: Never True Current Housing: I Have Housing Concerned About Future Housing: No Difficulty Paying Gas/Electric Bills: No Difficulty Paying for Meds: No Currently Unemployed: No Education: Associate Degree Difficulty w/ Childcare or Family Care: No Spiritual care concerns: No Anes - Eval Final PreProcedure Day of Procedure 08/11/24 14:34 Patient weight: normal Heart: regular rate and rhythm Lungs: clear to auscultation Airway: Mallampati scale and special considerations (Upper perm retainer, lower bridge. ) Neurological: alert and oriented Last oral intake: >/= 8 hours ASA classification: II Emergent: no Anesthetic plan: proceed Anesthesia type and monitoring: general ETT and standard monitoring Results Review: All pre-operative results and documents have been reviewed as part of the pre- operative evaluation. Pt generally active, no cp or sob. Informed Consent: The patient's anesthetic plan and its attendant risks and benefits were discussed with the patient/family/POA. Questions were solicited and answers provided to the satisfaction of the patient/family/POA.
[2024-08-11] MEDS: LACTATED RINGERS 1,000 ML 30 ML IV CONT ×2 (14:45→16:18)
--- NOTE | 2024-08-11 14:47 | WPDHPUPDATE1 ---
History and Physical Update Update Date/Time: 08/11/24 14:47 History and Physical has been reviewed, including an updated exam of the patient. There are NO changes in the patient's condition. Risks, benefits, and alternatives have been discussed and questions answered. Patient agrees to proceed with procedure.
[2024-08-11] MEDS: LIDO 1%/EPINEPHRINE 1:100,000 50 ML VIAL 25 ML INFILTRATE (15:05)
--- NOTE | 2024-08-11 16:24 | W.PM.PROC2 ---
Procedure Note - Detailed Date of Procedure 08/11/24 Pre-op Diagnosis Cholelithiasis, choledocholithiasis. Post-op Diagnosis Same Procedure Performed Laparoscopic cholecystectomy with intraoperative cholangiogram Surgeon Adria Medeiros MD Manufacturing Maintenance [employer]ic Dashawn Coats SA Anesthesia General Indications Patient is a 44-year-old female who was admitted to the hospital severe right upper quadrant abdominal and epigastric abdominal pain. She had elevated liver enzymes but normal white blood cell count. Imaging showed gallstones and dilated common bile duct. She then had an MRCP performed showing no evidence retained common bile duct stone and her total bilirubin peaked at 2.9. It appears that she likely has passed a common bile duct stone. Her transaminases are decreasing and she is being brought to the operating now for a laparoscopic cholecystectomy with intraoperative cholangiogram. Findings Patient's gallbladder had multiple gallstones within it. The gallbladder wall was not thickened. There was some edema around the gallbladder but this was likely due to reaction from very mild acute pancreatitis from passage of a gallstone. Intraoperative cholangiogram was performed showing no evidence of retained common bile duct stone. There was free flow contrast promptly into the duodenum. The common bile duct was mildly dilated but tapered gradually to the sphincter of Oddi without evidence of filling defect. Description of Procedure After informed consent was obtained patient was brought to the operating room she was placed supine position and general endotracheal anesthesia was administered. The abdomen was then prepped and draped usual sterile fashion. A time-out was then performed correctly the identifying the patient as well as procedure to be performed. She was already on scheduled IV antibiotics. I then entered the abdomen left upper quadrant utilizing a 5mm Optiview port. Once inside the abdomen insufflated to adequate pneumoperitoneum of 15mmHg of CO2. A 5mm periumbilical trocar port as well as a 10mm epigastric trocar port and 2 more right lateral subcostal 5mm trocar ports were all placed under direct visualization. The laparoscopic was switched over to the periumbilical trocar port site. Then looking to the upper portion of the abdomen I could see the gallbladder which was distended but without evidence of acute cholecystitis. There is a small amount of fluid around the gallbladder suggestive of possible inflammatory changes and edema from mild acute pancreatitis from passage of common bile duct stone. A laparoscopic grasper used to hold gallbladder at the dome and the gallbladder was elevated over the right half liver towards right shoulder. A 2nd grasper used to hold the gallbladder at the infundibulum. I then stripped down the visceral peritoneum off of the infundibulum of the gallbladder until I identified the cystic duct. The cystic duct was then dissected out circumferentially. The cystic artery was identified and was dissected out circumferentially as well. The posterior wall the gallbladder at the infundibulum dissected free liver into the critical view was obtained. At this point I then reduced any of the gallstones as the infundibular gallbladder placed a Renae clamp across the infundibular gallbladder. The cholangiocatheter was then passed through the specialized channel the Renae clamp and the was then used to ga the distal portion infundibular gallbladder. It was then flushed with saline solution and flushed easily. C-arm was then brought over the patient and full strength contrast was injected through the cholangiocatheter. An intraoperative cholangiogram was then performed with the contrast promptly going into the cystic duct without evidence of any stones in the cystic duct. Contrast then flowed easily into the a mildly dilated common bile duct without evidence of retained common bile duct stone. The duct tapered gradually down to the sphincter of Oddi and there is prompt drainage of dye into the duodenum. I then flushed the cholangiocatheter was saline solution. It was then removed from the infundibular gallbladder. Two clips were then placed proximally in the cystic duct and 2 clips distally high on infundibular gallbladder. Cystic duct was then divided with Endo Cecil. A similar fashion cystic artery clipped and divided as well. The gallbladder was then resected off the liver utilized electrocautery. No gallstones were spilled. No bile was spilled. Once the gallbladder was free from liver is placed into an Endo-Catch bag and brought out through the epigastric port site. Gallbladder stones within were sent to pathology for examination. I then irrigated out the right upper quadrant abdomen gallbladder fossa with sterile saline solution. Hemostasis was excellent. There is no evidence of bile leak. I then aspirated the fluid from the right upper quadrant the abdomen from the pelvis. I then removed all the trocar ports under visualization all port sites appeared hemostatic. The epigastric 10mm trocar port fascial defect was closed utilizing a 0 PDS suture as the patient stated she had allergy to Vicryl suture. The incisions then irrigated sterile saline solution hemostasis was good. The incision was then closed at skin level utilizing a running subcuticular 4 Monocryl suture. The incisions were then cleaned the skin glue was applied. The patient tolerated the procedure well no complications. All sponges, needles, and instrument counts were correct at the end procedure. EBL was _15__cc. The patient was awakened and taken to recovery in stable and satisfactory condition. Implants None Estimated Blood Loss 15 Drains No Packing No Pathology Yes (Gallbladder and gallstones to pathology) Complications No immediate complications Condition Stable Disposition PACU [facility] Billing Surgery - Charge Forward: Surgery Billing
[2024-08-11] MEDS: fentaNYL CITRATE INJ (*CRX) 100 MCG/2 ML VIAL 25 MCG IV PUSH ×2 (16:54→16:57)
[2024-08-11] MEDS: HYDROcodone/acetaminophen (*CRX) 5-325 MG TABLET 1 TAB PO (23:50)
[2024-08-12 02:54] VITALS: BP 122/66; PULSE 72; RESP 18; TEMP 36.6; O2SAT 100
[2024-08-12 06:08] LABS: Basophils Percent Auto 0.4 % (0.2-1.2); Hematocrit 37.2 % (37.0-47.0); Hemoglobin 12.6 g/dL (12.0-15.0); Immature Granulocyte Absolute 0.04 K/mm3 (0.00-0.031); Immature Granulocyte Percent A 0.4 % (0-0.5); Lymphocytes Absolute Auto 1.29 K/mm3 (0.9-3.2); Lymphocytes Percent Auto 13.9 % (18.3-44.2); Mean Corpuscular HGB Conc 33.9 g/dl (32-36); Mean Corpuscular Hemoglobin 33.5 pg (26-34); Mean Corpuscular Volume 98.9 fl (80-100); Mean Platelet Volume 9.2 fl (7.4-10.4); Monocytes Absolute Auto 0.7 K/mm3 (0.1-0.6); Neutrophils Absolute Auto 7.1 K/mm3 (1.3-6.7); Neutrophils Percent Auto 77.3 % (45.5-73.1); Platelet Count Result 314 k/mm3 (150-375); Red Blood Count 3.76 M/mm3 (4.2-5.4); Red Cell Distribution Width 11.9 % (11.5-14.5); White Blood Count 9.3 K/mm3 (4.5-10.0)
[2024-08-12 06:21] LABS: Alanine Aminotransferase 665 U/L (6-35); Albumin Level 3.5 g/dL (3.5-5.1); Alkaline Phosphatase 171 U/L (38-126); Anion Gap 7 mmol/L (4-12); Aspartate Amino Transferase 434 U/L (14-36); Bilirubin,Total 2.6 mg/dL (0.2-1.3); Blood Urea Nitrogen 7 mg/dL (7-17); Calcium 8.5 mg/dL (8.4-10.2); Carbon Dioxide 25 mmol/L (22-30); Chloride 103 mmol/L (98-107); Estimated CRCL calculation 86 ml/min; Estimated Glomerular Filt Rate > 60; Glucose 89 mg/dL (65-110); Potassium 3.8 mmol/L (3.4-5.0); Sodium 135 mmol/L (137-145)
[2024-08-12] MEDS: buPROPion HCL XL (24 HR) 150 MG TABCR 300 MG PO (08:29)
[2024-08-12] MEDS: MIRABEGRON 25 MG ER TABLET PO (08:29)
[2024-08-12] MEDS: LORazepam (*CRX) 0.5 MG TABLET PO (08:29)
[2024-08-12] MEDS: PANTOPRAZOLE SODIUM IV 40 MG VIAL IV PUSH (08:29)
--- NOTE | 2024-08-12 09:03 | P.PNAN_ITS ---
Anes - Prog Note Post-Op Date/Time: 08/12/24 09:03 Cardiovascular status: normal Respiratory status: normal Airway patency: baseline Mental status: baseline Post-Op hydration status: normal Vital Signs: Last Vital Signs Temp 36.6 C 08/12/24 02:54 Pulse 72 08/12/24 02:54 Resp 18 08/12/24 02:54 BP 122/66 08/12/24 02:54 Pulse Ox 100 08/12/24 02:54 O2 Del Method Room Air 08/11/24 17:15 O2 Flow Rate 8 08/11/24 16:45 Pain Score (VAS): 0/10 I/O: Intake & Output 08/11/24 08/12/24 08/12/24 23:59 07:59 15:59 Intake Total 500 1080 Balance 500 1080 Laboratory Tests 08/12/24 05:48 08/12/24 05:48 08/11/24 08/12/24 07:06 05:48 WBC 9.3 RBC 3.76 L Hgb 12.6 Hct 37.2 MCV 98.9 MCH 33.5 MCHC 33.9 RDW 11.9 Plt Count 314 MPV 9.2 Immature Gran % (Auto) 0.4 Neut % (Auto) 77.3 H Lymph % (Auto) 13.9 L [place] % (Auto) 8.0 Eos % (Auto) 0.0 Baso % (Auto) 0.4 Lymph # (Auto) 1.29 [place] # (Auto) 0.7 H Eos # (Auto) 0.0 Baso # (Auto) 0.0 Abs Immat Gran (auto) 0.04 H Absolute Neuts (auto) 7.1 H Absolute Nucleated RBC 0.000 Nucleated RBC % 0.0 Sodium 135 L Potassium 3.8 Chloride 103 Carbon Dioxide 25 Anion Gap 7 BUN 7 Creatinine 0.70 Estim Creat Clear Calc 86 Estimated GFR > 60 Glucose 89 Calcium 8.5 Total Bilirubin 2.6 H AST 434 H ALT 665 H Alkaline Phosphatase 171 H Total Protein 6.0 L Albumin 3.5 Hepatitis A IgM Ab Negative Hep Bs Antigen Negative Hep B Core IgM Ab Negative Hepatitis C Ab Screen Negative Microbiology 08/10/24 08:25 Blood Blood Culture - Preliminary 08/10/24 08:25 Blood Blood Culture - Preliminary Post-procedural complaints: none Patient Feedback: Patient satisfied with anesthetic care.
--- NOTE | 2024-08-12 10:36 | PM.IMPN ---
Subjective Date/time seen: 08/12/24 10:36 Review of Systems Review of Systems: All systems reviewed & are unremarkable except as noted in HPI and below Objective Data Vital Signs Vital Signs: Vital Signs - 24 hr 08/11/24 13:00 08/11/24 14:37 08/11/24 16:30 Temperature 99.7 F H 98.0 F Pulse Rate 68 68 70 Respiratory Rate 18 18 14 Blood Pressure 116/76 121/44 L 142/73 H Pulse Oximetry 99 100 100 Oxygen Delivery Room Air Simple Face Mask Oxygen Flow Rate 8 08/11/24 16:18 08/11/24 16:45 08/11/24 17:00 Temperature 97.8 F Pulse Rate 92 75 71 Respiratory Rate 20 14 17 Blood Pressure 139/82 132/67 136/73 Pulse Oximetry 100 100 100 Oxygen Delivery Simple Face Mask Simple Face Mask Room Air Oxygen Flow Rate 8 8 08/11/24 17:15 08/11/24 19:00 08/11/24 23:00 Temperature 98.7 F 98.6 F Pulse Rate 78 59 L 73 Respiratory Rate 16 18 18 Blood Pressure 127/72 131/70 119/62 Pulse Oximetry 100 100 99 Oxygen Delivery Room Air Oxygen Flow Rate 08/12/24 02:54 Temperature 97.9 F Pulse Rate 72 Respiratory Rate 18 Blood Pressure 122/66 Pulse Oximetry 100 Oxygen Delivery Oxygen Flow Rate Intake/Output Intake/Output: Intake & Output 08/09/24 08/10/24 08/11/24 08/12/24 23:59 23:59 23:59 23:59 Intake Total 100 2300 1618.8 1200 Balance 100 2300 1618.8 1200 Meds/Results Medications: Active Medications Generic Name Dose Route Start Last Admin Trade Name Freq PRN Reason Stop Dose Admin Acetaminophen 1,000 mg 08/11/24 17:21 Acetaminophen 500 Mg Tablet PO Q6H PRN Mild Pain (1-3) or Fever Hydrocodone Bitart/Acetaminophen 1 tab 08/11/24 17:21 08/11/24 23:50 Hydrocodone/Acetaminophen (*Crx) 5-325 Mg Tablet PO 1 tab Q4H PRN Administration Pain Rated 4-6 Bupropion HCl 300 mg 08/10/24 09:00 08/12/24 08:29 Bupropion Hcl Xl (24 Hr) 150 Mg Tabcr PO 300 mg DAILY VIDHI Administration Hydromorphone HCl 1 mg 08/10/24 09:33 Hydromorphone Hcl Inj (*Crx) 1 Mg/Ml Syr IV PUSH Q4H PRN Pain Rated 7-10 Lorazepam 0.5 mg 08/10/24 09:00 08/12/24 08:29 Lorazepam (*Crx) 0.5 Mg Tablet PO 0.5 mg DAILY VIDHI Administration Mirabegron 25 mg 08/10/24 09:00 08/12/24 08:29 Mirabegron 25 Mg Er Tablet PO 25 mg DAILY VIDHI Administration Atogepant [Qulipta] 60 mg 08/10/24 09:00 08/12/24 08:28 60 Mg Tablet PO 09/09/24 08:59 Not Given DAILY VIDHI Cariprazine [Vraylar 1.5 mg 08/10/24 09:00 08/12/24 08:29 ] 1.5 Mg Capsule PO 09/09/24 08:59 1.5 mg DAILY VIDHI Administration Ondansetron HCl 4 mg 08/09/24 20:42 Ondansetron Inj 4 Mg/2 Ml Vial IV PUSH Q4H PRN Nausea Oxycodone HCl 5 mg 08/11/24 17:21 Oxycodone Hcl (*Crx) 5 Mg Tab Ir PO Q4H PRN Pain Rated 7-10 Pantoprazole Sodium 40 mg 08/11/24 09:00 08/12/24 08:29 Pantoprazole Sodium Iv 40 Mg Vial IV PUSH 40 mg QAM VIDHI Administration Radiology Results: ITS Impressions Chest X-Ray 08/09/24 17:22 IMPRESSION: 1. No acute cardiopulmonary disease. Abdomen/Pelvis CT 08/09/24 19:32 IMPRESSION: 1. Mild intra and extra hepatic ductal or ductal dilation without evident obstructing stone or mass. Correlate with liver function tests and could consider HIDA scan for further evaluation as clinically indicated. 2. Nonspecific small amount of fluid between the liver and the normal-appearing gallbladder. Could not absent exclude early acute cholecystitis and would correlate for Angelo sign. Could additionally consider either right upper quadrant ultrasound or HIDA scan as clinically indicated. Abdomen Ultrasound 08/09/24 19:46 IMPRESSION: 1. Cholelithiasis with positive sonographic Angelo sign and small amount of pericholecystic fluid consistent with likely early acute cholecystitis. 2. Mild intra and extrahepatic biliary ductal dilation with common bile duct measuring up to 9 mm which suggests a possible distal obstructing stone. Correlate with liver function tests and consider MRCP for further evaluation. MRCP 08/10/24 13:26 IMPRESSION: 1. Mildly dilated common duct. No choledocholithiasis. 2. Cholelithiasis. Gallbladder distention may be secondary to fasting. Labs Labs: Laboratory Results - last 24 hr 08/11/24 08/12/24 07:06 05:48 WBC 9.3 RBC 3.76 L Hgb 12.6 Hct 37.2 MCV 98.9 MCH 33.5 MCHC 33.9 RDW 11.9 Plt Count 314 MPV 9.2 Immature Gran % (Auto) 0.4 Neut % (Auto) 77.3 H Lymph % (Auto) 13.9 L [place] % (Auto) 8.0 Eos % (Auto) 0.0 Baso % (Auto) 0.4 Lymph # (Auto) 1.29 [place] # (Auto) 0.7 H Eos # (Auto) 0.0 Baso # (Auto) 0.0 Abs Immat Gran (auto) 0.04 H Absolute Neuts (auto) 7.1 H Absolute Nucleated RBC 0.000 Nucleated RBC % 0.0 Sodium 135 L Potassium 3.8 Chloride 103 Carbon Dioxide 25 Anion Gap 7 BUN 7 Creatinine 0.70 Estim Creat Clear Calc 86 Estimated GFR > 60 Glucose 89 Calcium 8.5 Total Bilirubin 2.6 H AST 434 H ALT 665 H Alkaline Phosphatase 171 H Total Protein 6.0 L Albumin 3.5 Hepatitis A IgM Ab Negative Hep Bs Antigen Negative Hep B Core IgM Ab Negative Hepatitis C Ab Screen Negative
[2024-08-12 10:54] VITALS: BP 132/66; PULSE 58; RESP 16; TEMP 37.2; O2SAT 100
[2024-08-12] MEDS: HYDROcodone/acetaminophen (*CRX) 5-325 MG TABLET 1 TAB PO (11:37)
--- NOTE | 2024-08-12 14:10 | PM.PNGS ---
Progress Note: A&P Assessment and Plan (1) Acute cholecystitis: Code(s): K81.0 - Acute cholecystitis Status: Acute Assessment and Plan: Doing well on POD#1. OK to discharge from surgical standpoint. Follow up with Dr. Medeiros in 2 weeks. Get repeat liver enzymes in 1 week. May return to work on Wednesday. (2) Cholelithiasis: Code(s): K80.20 - Calculus of gallbladder without cholecystitis without obstruction Status: Acute (3) Elevated LFTs: Code(s): R79.89 - Other specified abnormal findings of blood chemistry Status: Acute Subjective Subjective Date/Time Seen: 08/12/24 14:10 Interval history: Tolerating diet. Pain controlled. Ambulating in halls. Denies any dark urine. Exam GI: Inspection: non-distended and incision (intact with glue) GI Palp: Yes Soft to palpation, No Tenderness to palpation present (GI) and No Guarding due to palpation present (GI) Auscultation: normal bowel sounds Objective Data Vital Signs Vital Signs: Vital Signs - 24 hr 08/11/24 14:37 08/11/24 16:30 08/11/24 16:18 Temperature 98.0 F 97.8 F Pulse Rate 68 70 92 Respiratory Rate 18 14 20 Blood Pressure 121/44 L 142/73 H 139/82 Pulse Oximetry 100 100 100 Oxygen Delivery Simple Face Mask Simple Face Mask Oxygen Flow Rate 8 8 08/11/24 16:45 08/11/24 17:00 08/11/24 17:15 Temperature Pulse Rate 75 71 78 Respiratory Rate 14 17 16 Blood Pressure 132/67 136/73 127/72 Pulse Oximetry 100 100 100 Oxygen Delivery Simple Face Mask Room Air Room Air Oxygen Flow Rate 8 08/11/24 19:00 08/11/24 23:00 08/12/24 02:54 Temperature 98.7 F 98.6 F 97.9 F Pulse Rate 59 L 73 72 Respiratory Rate 18 18 18 Blood Pressure 131/70 119/62 122/66 Pulse Oximetry 100 99 100 Oxygen Delivery Oxygen Flow Rate 08/12/24 10:54 Temperature 98.9 F Pulse Rate 58 L Respiratory Rate 16 Blood Pressure 132/66 Pulse Oximetry 100 Oxygen Delivery Oxygen Flow Rate Intake/Output Intake/Output: Intake & Output 08/09/24 08/10/24 08/11/24 08/12/24 23:59 23:59 23:59 23:59 Intake Total 100 2300 1618.8 1200 Balance 100 2300 1618.8 1200 Meds/Results Medications: Active Medications Generic Name Dose Route Start Last Admin Trade Name Freq PRN Reason Stop Dose Admin Acetaminophen 1,000 mg 08/11/24 17:21 Acetaminophen 500 Mg Tablet PO Q6H PRN Mild Pain (1-3) or Fever Hydrocodone Bitart/Acetaminophen 1 tab 08/11/24 17:21 08/12/24 11:37 Hydrocodone/Acetaminophen (*Crx) 5-325 Mg Tablet PO 1 tab Q4H PRN Administration Pain Rated 4-6 Bupropion HCl 300 mg 08/10/24 09:00 08/12/24 08:29 Bupropion Hcl Xl (24 Hr) 150 Mg Tabcr PO 300 mg DAILY VIDHI Administration Hydromorphone HCl 1 mg 08/10/24 09:33 Hydromorphone Hcl Inj (*Crx) 1 Mg/Ml Syr IV PUSH Q4H PRN Pain Rated 7-10 Lorazepam 0.5 mg 08/10/24 09:00 08/12/24 08:29 Lorazepam (*Crx) 0.5 Mg Tablet PO 0.5 mg DAILY VIDHI Administration Mirabegron 25 mg 08/10/24 09:00 08/12/24 08:29 Mirabegron 25 Mg Er Tablet PO 25 mg DAILY VIDHI Administration Atogepant [Qulipta] 60 mg 08/10/24 09:00 08/12/24 08:28 60 Mg Tablet PO 09/09/24 08:59 Not Given DAILY VIDHI Cariprazine [Vraylar 1.5 mg 08/10/24 09:00 08/12/24 08:29 ] 1.5 Mg Capsule PO 09/09/24 08:59 1.5 mg DAILY VIDHI Administration Ondansetron HCl 4 mg 08/09/24 20:42 Ondansetron Inj 4 Mg/2 Ml Vial IV PUSH Q4H PRN Nausea Oxycodone HCl 5 mg 08/11/24 17:21 Oxycodone Hcl (*Crx) 5 Mg Tab Ir PO Q4H PRN Pain Rated 7-10 Pantoprazole Sodium 40 mg 08/11/24 09:00 08/12/24 08:29 Pantoprazole Sodium Iv 40 Mg Vial IV PUSH 40 mg QAM VIDHI Administration Radiology Results: ITS Impressions Chest X-Ray 08/09/24 17:22 IMPRESSION: 1. No acute cardiopulmonary disease. Abdomen/Pelvis CT 08/09/24 19:32 IMPRESSION: 1. Mild intra and extra hepatic ductal or ductal dilation without evident obstructing stone or mass. Correlate with liver function tests and could consider HIDA scan for further evaluation as clinically indicated. 2. Nonspecific small amount of fluid between the liver and the normal-appearing gallbladder. Could not absent exclude early acute cholecystitis and would correlate for Angelo sign. Could additionally consider either right upper quadrant ultrasound or HIDA scan as clinically indicated. Abdomen Ultrasound 08/09/24 19:46 IMPRESSION: 1. Cholelithiasis with positive sonographic Angelo sign and small amount of pericholecystic fluid consistent with likely early acute cholecystitis. 2. Mild intra and extrahepatic biliary ductal dilation with common bile duct measuring up to 9 mm which suggests a possible distal obstructing stone. Correlate with liver function tests and consider MRCP for further evaluation. MRCP 08/10/24 13:26 IMPRESSION: 1. Mildly dilated common duct. No choledocholithiasis. 2. Cholelithiasis. Gallbladder distention may be secondary to fasting. Labs Labs: Laboratory Results - last 24 hr 08/12/24 05:48 WBC 9.3 RBC 3.76 L Hgb 12.6 Hct 37.2 MCV 98.9 MCH 33.5 MCHC 33.9 RDW 11.9 Plt Count 314 MPV 9.2 Immature Gran % (Auto) 0.4 Neut % (Auto) 77.3 H Lymph % (Auto) 13.9 L [place] % (Auto) 8.0 Eos % (Auto) 0.0 Baso % (Auto) 0.4 Lymph # (Auto) 1.29 [place] # (Auto) 0.7 H Eos # (Auto) 0.0 Baso # (Auto) 0.0 Abs Immat Gran (auto) 0.04 H Absolute Neuts (auto) 7.1 H Absolute Nucleated RBC 0.000 Nucleated RBC % 0.0 Sodium 135 L Potassium 3.8 Chloride 103 Carbon Dioxide 25 Anion Gap 7 BUN 7 Creatinine 0.70 Estim Creat Clear Calc 86 Estimated GFR > 60 Glucose 89 Calcium 8.5 Total Bilirubin 2.6 H AST 434 H ALT 665 H Alkaline Phosphatase 171 H Total Protein 6.0 L Albumin 3.5
--- NOTE | 2024-08-12 14:36 | PM.DS ---
DS: Admitting Diagnosis Discharge Date 08/12/24 Admitting Diagnosis Chest pain and abdominal pain. DS: Discharge Diagnosis Discharge Diagnosis (1) Acute cholecystitis: Code(s): K81.0 - Acute cholecystitis Status: Acute (2) Cholelithiasis: Code(s): K80.20 - Calculus of gallbladder without cholecystitis without obstruction Status: Acute DS: Summary Hospital Course Hospital Course: This is a 44-year-old female with past medical history significant for generalized anxiety disorder, major depression. patient presents to the emergency room due to sudden onset of right upper quadrant pain with radiation to the chest and back, rates the pain as 10/10 in intensity, pain is colicky. Patient denies any vomiting but had nausea, no fevers no rigors no chills no cough no sputum production. Patient denies any dyspepsia . Has been her usual state of health. Preliminary workup was significant for CT of abdomen and pelvis reported with extrahepatic duct dilatation. Ultrasound of the right upper quadrant showed cholelithiasis with a positive Angelo sign. Laparoscopic Cholecystectomy done on 08/11/24. Time Spent with Patient Time attestation: Total time spent providing and/or coordinating discharge services: Time spent: Greater than 30 minutes Exam Const: General: comfortable and no acute distress Eyes: Sclera: sclerae normal Resp: Effort & Inspection: normal respiratory effort Auscultation: clear to auscultation bilaterally Cardio: Rate: regular rate Rhythm: regular rhythm GI: GI Palp: Yes Soft to palpation Auscultation: normal bowel sounds Skin: Other: laparoscopic incisions approximated with glue, no drainag or redness noted. Extrem: General: normal to inspection and no pedal edema Psych: Mental Status: mental status grossly normal Affect: normal affect DS: Data Data Completed and Pending Pending studies at discharge: Pending at discharge 08/11/24 14:52 Surgical [PTH] Routine Labs on day of discharge: Labs from last 24 hours 08/12/24 05:48 WBC 9.3 RBC 3.76 L Hgb 12.6 Hct 37.2 MCV 98.9 MCH 33.5 MCHC 33.9 RDW 11.9 Plt Count 314 MPV 9.2 Immature Gran % (Auto) 0.4 Neut % (Auto) 77.3 H Lymph % (Auto) 13.9 L [place] % (Auto) 8.0 Eos % (Auto) 0.0 Baso % (Auto) 0.4 Lymph # (Auto) 1.29 [place] # (Auto) 0.7 H Eos # (Auto) 0.0 Baso # (Auto) 0.0 Abs Immat Gran (auto) 0.04 H Absolute Neuts (auto) 7.1 H Absolute Nucleated RBC 0.000 Nucleated RBC % 0.0 Sodium 135 L Potassium 3.8 Chloride 103 Carbon Dioxide 25 Anion Gap 7 BUN 7 Creatinine 0.70 Estim Creat Clear Calc 86 Estimated GFR > 60 Glucose 89 Calcium 8.5 Total Bilirubin 2.6 H AST 434 H ALT 665 H Alkaline Phosphatase 171 H Total Protein 6.0 L Albumin 3.5 Preliminary micro results at discharge 08/10/24 08:25 Blood Culture - Preliminary Blood 08/10/24 08:25 Blood Culture - Preliminary Blood Discharge Plan Discharge Attending physician on discharge: Salvador Kee Consulting providers: Adria Medeiros Discharging Clinician: Eva Suazo Anticipated Discharge Date/Time: 08/12/24 15:00 Patient Disposition: Home, Self-Care Activity: other - see discharge instructions Diet: other - see discharge instructions Wound Care Instructions: other - see discharge instructions Discharge Instructions: Follow up with Dr. Medeiros in the office in 2 weeks. Patient to call [phone] for an appointment. May shower in 24hours but do not soak incisions under water for 2 weeks. No lifting more than 10 to 15 lb for 2 weeks. May return to work on Wednesday. May advance diet as tolerated. No driving for at least 3 days or until no longer taking any narcotic pain medication. Resume all home medications. Prescription for narcotic pain medicines will be sent to the patient's pharmacy if needed. May use Tylenol and/or ibuprofen in addition to or in place of narcotic pain medications for postoperative pain. Patient Instructions: Antibiotic Form, Opioid Safety (DC), Laparoscopic Cholecystectomy (DC) Stand Alone Forms: General Discharge Information, Work/School Release IP Follow-up/Referrals: NileshArjun MD [Primary Care Provider] - 1 Week Adria Medeiros MD [Physician] - 2 Weeks (call for an appointment ) Discharge Medications: New oxycodone 5 mg tablet 5 mg PO Q6H PRN (Reason: pain) Qty: 10 0RF Continued lorazepam 0.5 mg tablet 0.5 mg PO DAILY bupropion HCl 300 mg tablet extended release 24 hr 300 mg PO DAILY mirabegron 25 mg tablet extended release 24 hr 25 mg PO DAILY Vraylar 1.5 mg capsule 1.5 mg PO DAILY Qulipta 60 mg tablet 60 mg PO DAILY Other Ambulatory Orders: Hepatic Panel (Routine) Timeframe: 1 Week Location: Determined by Patient Ordered By: Alexis Gonzalez Date of admission: 08/09/24 20:43 Primary Care Provider: Nilesh,[facility] Admitting Provider: Sridevi Graham V. Attending physician on admission: Sridevi Graham V. Condition: Stable Hospitalist MIPS Heart Failure (Exclusion) Patient has history of Heart Transplant or Left Ventricular Assistive Device?: No IF YES, STOP HERE Heart Failure (Qualifier) Patient has current or prior documentation of LVEF less than or equal to 40%, or mod/servere depressed LVSF?: No IF NO, STOP HERE
[2024-08-12 14:54] VITALS: BP 118/68; PULSE 66; RESP 16; TEMP 37; O2SAT 100
== END 2024-08-12 15:15 | disposition home or self-care (01) | DRG 419 ==
LOC: ANHED 20:42 → ANH3MEDSUR 21:21
PROVIDERS: Emergency Medicine; Internal Medicine Gastroenterology; Surgery; Admitting Provider Internal Medicine; Emergency Provider Emergency Medicine; PCP Family Medicine; Visit Provider Nurse Practitioner Family
PROC: 0FT44ZZ Resection of Gallbladder, Percutaneous Endoscopic Approach (ICD-10-PCS; CPT 47562; principal; 2024-08-11 14:00)
DX: K80.62 Calculus of gallbladder and bile duct with acute cholecystitis without obstruction (principal); K21.9 Gastro-esophageal reflux disease without esophagitis; R51.9 Headache, unspecified; F41.1 Generalized anxiety disorder; F32.9 Major depressive disorder, single episode, unspecified; Z87.891 Personal history of nicotine dependence
CPT/HCPCS: 36415; 71046; 74177; 74183; 74300; 76376; 76705; 80053; 80074; 83690; 83735; 84484; 85025; 85610; 85730; 86850; 86900; 86901; 87040; 88304; 93005; 99285; A9270; A9577; J1100; J1885; J2003; J2004; J2250; J2405; J2470; J2543; J2704; J3010; J7030; J7120; Q9967